=== PATIENT | male | born 1995 | race Caucasian/White ===

== ENCOUNTER 2018-09-05 21:57 | Inpatient (IN) | payer OTHER ==
[~2018-09-05] VITALS: Ht 172.7 cm; Wt 95.8 kg
[2018-09-05] MEDS ORDERED: ONDANSETRON PF 4 MG/2 ML VIAL. ONE (22:20)
[2018-09-05] MEDS ORDERED: KETOROLAC 15 MG/ML VIAL. IV ONE (22:30)
[2018-09-05] MEDS ORDERED: IV NORMAL SALINE 1000ML BAG 1,000 ML IV ONE (22:30)
[2018-09-05 22:39] LABS: BILIRUBIN,URINE NEGATIVE (NEG); CLARITY,URINE CLEAR; COLOR,URINE YELLOW; NITRITE,URINE NEGATIVE (NEG); PH,URINE 6.5; PROTEIN,URINE NEGATIVE (NEG-TRACE)
[2018-09-05 22:39] LABS: BASO # 0.1 x10^3/uL (0.0-0.2); BASO % 1 % (0-3); EOS # 0.2 x10^3/uL (0.0-0.7); EOS % 1 % (0-3); HEMOGLOBIN 15.5 g/dL (13.0-17.5); LYMPH # 2.5 x10^3/uL (1.0-4.8); LYMPH % 17 % (24-48); MEAN CORPUSCULAR HEMOGLOBIN 29 pg (25-35); MEAN CORPUSCULAR HGB CONC 34 g/dL (31-37); MEAN CORPUSCULAR VOLUME 85 fL (79-100); MONO # 0.8 x10^3/uL (0.0-1.1); MONO % 6 % (0-9); NEUT # 11.4 x10^3uL (1.8-7.7); NEUT % 76 % (31-73); PLATELET COUNT 193 x10^3/uL (140-400); RED BLOOD COUNT 5.32 x10^6/uL (4.30-5.70); RED CELL DISTRIBUTION WIDTH 12.5 % (11.5-14.5)
[2018-09-05 22:43] LABS: BACTERIA,URINE 0 /HPF (0-FEW); SQUAMOUS EPITHELIAL CELL,UR FEW /LPF; WBC,URINE 0 /HPF (0-4)
[2018-09-05 22:46] LABS: CALCIUM 9.3 mg/dL (8.5-10.1); CREATININE 0.9 mg/dL (0.7-1.3); GFR 105.5; POTASSIUM 3.4 mmol/L (3.5-5.1)
[2018-09-05 22:52] LABS: ALBUMIN 4.3 g/dL (3.4-5.0); ALBUMIN/GLOBULIN RATIO 1.2 (1.0-1.7); TOTAL BILIRUBIN 0.3 mg/dL (0.2-1.0); TOTAL PROTEIN 7.8 g/dL (6.4-8.2)
[2018-09-05] MEDS ORDERED: ONDANSETRON ODT 4 MG TAB.RAPDIS. PO ONE (23:00)
[2018-09-05] MEDS ORDERED: METOCLOPRAMIDE HCL 10 MG/2 ML VIAL. IV ONE (23:00)
[2018-09-05] MEDS ORDERED: FAMOTIDINE 20 MG/2 ML VIAL IVP ONE (23:00)
--- NOTE | 2018-09-05 23:33 | PHYS DOC ---
Past Medical History Past Medical History: Diabetes-Type I Past Surgical History: No Surgical History Alcohol Use: Occasionally Drug Use: None Adult General Chief Complaint Chief Complaint: ABDOMINAL PAIN HPI HPI Patient is a 23 year old male who presents with abdominal pain. Patient states this morning he woke up with right-sided back pain and throughout the day pain moved to the center of his stomach. He described the pain initially as a dull crampy sensation however as the day progressed his pain worsened to a severe crampy sensation. His pain currently as a 7 out of 10. His pain is worsened by laying down, jarring movements. Nothing seems to improve his pain. In addition to his abdominal pain patient also had 4 episodes of nonbilious nonbloody emesis this evening. He denies any blood in his urine, diarrhea, constipation, or blood in stools. His last bowel movement was this evening it was normal for him. Review of Systems Review of Systems Constitutional: Reports chills. Denies fever Eyes: Denies redness or blurry vision HENT: Denies nasal congestion or sore throat Respiratory: Denies cough or shortness of breath Cardiovascular: Denies chest pain or palpitations GI: Reports abdominal pain, nausea, vomiting. Denies constipation or diarrhea. : Denies dysuria or hematuria Musculoskeletal: Reports back pain. Denies joint pain Integument: Denies rash or skin lesions Neurologic: Denies headache or focal weakness Complete systems were reviewed and found to be within normal limits, except as documented in this note. Current Medications Current Medications Current Medications Medications (Trade) Dose Ordered Sig/Tori Start Time Stop Time Status Last Admin Dose Admin Famotidine (Pepcid Vial) 20 mg 1X ONCE 09/05/18 23:00 09/05/18 23:01 DC 09/05/18 23:01 20 MG Ketorolac Tromethamine (Toradol 15mg Vial) 15 mg 1X ONCE 09/05/18 22:30 09/05/18 22:53 DC 09/05/18 22:30 15 MG Metoclopramide HCl (Reglan Vial) 10 mg 1X ONCE 09/05/18 23:00 09/05/18 23:01 DC 09/05/18 22:59 10 MG Ondansetron HCl (Zofran Odt) 4 mg 1X ONCE 09/05/18 23:00 09/05/18 23:01 DC Ondansetron HCl (Zofran) 4 mg STK-MED ONCE 09/05/18 22:20 09/05/18 22:21 DC Sodium Chloride 1,000 ml @ 1,000 mls/hr 1X ONCE 09/05/18 22:30 09/05/18 23:29 DC 09/05/18 22:32 1,000 MLS/HR Allergies Allergies Allergies Coded Allergies Type Severity Reaction Last Updated Verified No Known Drug Allergies 09/05/18 No Physical Exam Physical Exam Constitutional: Well developed, well nourished, no acute distress, non-toxic appearance. HENT: Normocephalic, atraumatic Eyes:EOMI, conjunctiva normal Neck: Normal range of motion, supple Cardiovascular:Heart rate regular rhythm, no murmur Lungs & Thorax: Bilateral breath sounds clear to auscultation, no rhonchi rales or wheezes. Abdomen: Bowel sounds normal, soft, right lower quadrant and epigastric tenderness, negative mercado's sign, psoas sign, obturator sign, and heel tap, no rebound rigidity or guarding, non-peritoneal Skin: Warm, dry, no erythema Back: No tenderness, no CVA tenderness. Extremities: No tenderness, ROM intact, no edema Neurologic: Alert and oriented X 3, no focal deficits noted Psychologic: Affect normal, mood normal Current Patient Data Vital Signs Vital Signs Date Time Temp Pulse Resp B/P (MAP) Pulse Ox O2 Delivery O2 Flow Rate FiO2 09/05/18 23:34 122/69 (86) 09/05/18 22:01 98.7 70 16 100 Room Air 98.7 Lab Values Laboratory Tests Test 09/05/18 22:03 09/05/18 22:29 Urine Collection Type Unknown Urine Color Yellow Urine Clarity Clear Urine pH 6.5 Urine Specific [place] 1.025 Urine Protein Negative mg/dL (NEG-TRACE) Urine Glucose (UA) Negative mg/dL (NEG) Urine Ketones (Stick) Negative mg/dL (NEG) Urine Blood Negative (NEG) Urine Nitrite Negative (NEG) Urine Bilirubin Negative (NEG) Urine Urobilinogen Dipstick 1.0 mg/dL (0.2 mg/dL) Urine Leukocyte Esterase Negative (NEG) Urine RBC 3-5 /HPF (0-2) Urine WBC 0 /HPF (0-4) Urine Squamous Epithelial Cells Few /LPF Urine Bacteria 0 /HPF (0-FEW) Urine Mucus Slight /LPF White Blood Count 15.0 x10^3/uL (4.0-11.0) H Red Blood Count 5.32 x10^6/uL (4.30-5.70) Hemoglobin 15.5 g/dL (13.0-17.5) Hematocrit 45.0 % (39.0-53.0) Mean Corpuscular Volume 85 fL (79-100) Mean Corpuscular Hemoglobin 29 pg (25-35) Mean Corpuscular Hemoglobin Concent 34 g/dL (31-37) Red Cell Distribution Width 12.5 % (11.5-14.5) Platelet Count 193 x10^3/uL (140-400) Neutrophils (%) (Auto) 76 % (31-73) H Lymphocytes (%) (Auto) 17 % (24-48) L Monocytes (%) (Auto) 6 % (0-9) Eosinophils (%) (Auto) 1 % (0-3) Basophils (%) (Auto) 1 % (0-3) Neutrophils # (Auto) 11.4 x10^3uL (1.8-7.7) H Lymphocytes # (Auto) 2.5 x10^3/uL (1.0-4.8) Monocytes # (Auto) 0.8 x10^3/uL (0.0-1.1) Eosinophils # (Auto) 0.2 x10^3/uL (0.0-0.7) Basophils # (Auto) 0.1 x10^3/uL (0.0-0.2) Sodium Level 140 mmol/L (136-145) Potassium Level 3.4 mmol/L (3.5-5.1) L Chloride Level 100 mmol/L (98-107) Carbon Dioxide Level 27 mmol/L (21-32) Anion Gap 13 (6-14) Blood Urea Nitrogen 21 mg/dL (8-26) Creatinine 0.9 mg/dL (0.7-1.3) Estimated GFR (Cockcroft-Gault) 105.5 BUN/Creatinine Ratio 23 (6-20) H Glucose Level 147 mg/dL (70-99) H Calcium Level 9.3 mg/dL (8.5-10.1) Magnesium Level 2.2 mg/dL (1.8-2.4) Total Bilirubin 0.3 mg/dL (0.2-1.0) Aspartate Amino Transferase (AST) 19 U/L (15-37) Alanine Aminotransferase (ALT) 51 U/L (16-63) Alkaline Phosphatase 84 U/L (46-116) Total Protein 7.8 g/dL (6.4-8.2) Albumin 4.3 g/dL (3.4-5.0) Albumin/Globulin Ratio 1.2 (1.0-1.7) Lipase 95 U/L (73-393) Laboratory Tests 09/05/18 22:29 Laboratory Tests 09/05/18 22:29 EKG EKG [] Radiology/Procedures Radiology/Procedures PROCEDURE: CT ABDOMEN PELVIS WO CONTRAST CT abdomen and pelvis without contrast: Reason for examination: Abdominal pain with nausea and vomiting. Helical images were obtained through the abdomen and pelvis with no intravenous or oral contrast administered. Reconstruction was performed in sagittal and coronal planes. Exposure: One or more of the following individualized dose reduction techniques were utilized for this examination: 1. Automated exposure control 2. Adjustment of the mA and/or kV according to patient size 3. Use of iterative reconstruction technique. The lung bases are clear. The heart size is normal with no pericardial effusion. No abnormality seen at the liver, spleen, adrenal glands, pancreas or gallbladder. The abdominal aorta and inferior vena cava show no acute abnormalities. There is a small hiatal hernia. No other abnormality seen at the stomach. The small intestinal tract is not abnormally dilated and shows no wall thickening. The colon shows no diverticulosis or diverticulitis or evidence of colitis. In the right lower quadrant, there is some density within a tubular structure which appears to represent the appendix containing appendicoliths which appears to be distended at 11.5 mm with wall thickening. No periappendiceal inflammation or abscess is seen. The kidneys show no renal masses, renal calculi, hydronephrosis or obstructive uropathy. No abnormality seen at the bladder, prostate gland or seminal vesicles. There does appear to be a small amount of free fluid in the pelvis. IMPRESSION: Dilated appendix with wall thickening and appendicoliths with no periappendiceal inflammation but a small amount of free fluid in the pelvis. Small hiatal hernia. Electronically signed by: Danae Carter MD (09/05/2018 11:44 PM) [facility] DICTATED and SIGNED BY: DANAE CARTER MD Course & Med Decision Making Course & Med Decision Making 23-year-old male presented to the emergency department due to abdominal pain. Pain initially started as back pain but involved in the stomach pain. He didn't have 4 episodes of nonbloody nonbilious emesis. Labs and imaging were obtained and posted to chart. On exam patient did have right lower quadrant tenderness as well as epigastric tenderness. Non-peritoneal. Symptomatic treatment provided with interval improvement. Patient had a white count of 15. CT imaging showed a dilated appendix and appendicolith is a likely early acute appendicitis. Per Dr. Valle, general surgeon, antibiotics were initiated. Patient requiring admission for further evaluation and treatment. Discussed with Dr. Jacob who is in agreement with admission. Discussed findings and plan with patient and family, who acknowledge understanding and agreement. [] Dragon Disclaimer Dragon Disclaimer This electronic medical record was generated, in whole or in part, using a voice recognition dictation system. Departure Departure Impression: Primary Impression: Acute appendicitis Disposition: 09 ADMITTED INPATIENT Admitting Physician: Other (Rigofel) Condition: GUARDED Referrals: CHEO JOSEPH (PCP) Critical Care Time Critical care time was 30 minutes which includes time at bedside, spent in discussion of patient's care with specialists and/or family members, with interpretation of laboratory and/or radiological studies and is exclusive of procedures. Problem Qualifiers Primary Impression: Acute appendicitis Acute appendicitis type: unspecified acute appendicitis type Qualified Codes : K35.80 - Unspecified acute appendicitis TAVO SANCHEZ DO Sep 05, 2018 23:33
--- NOTE | 2018-09-05 23:47 | RAD ---
CT abdomen and pelvis without contrast: Reason for examination: Abdominal pain with nausea and vomiting. Helical images were obtained through the abdomen and pelvis with no intravenous or oral contrast administered. Reconstruction was performed in sagittal and coronal planes. Exposure: One or more of the following individualized dose reduction techniques were utilized for this examination: 1. Automated exposure control 2. Adjustment of the mA and/or kV according to patient size 3. Use of iterative reconstruction technique. The lung bases are clear. The heart size is normal with no pericardial effusion. No abnormality seen at the liver, spleen, adrenal glands, pancreas or gallbladder. The abdominal aorta and inferior vena cava show no acute abnormalities. There is a small hiatal hernia. No other abnormality seen at the stomach. The small intestinal tract is not abnormally dilated and shows no wall thickening. The colon shows no diverticulosis or diverticulitis or evidence of colitis. In the right lower quadrant, there is some density within a tubular structure which appears to represent the appendix containing appendicoliths which appears to be distended at 11.5 mm with wall thickening. No periappendiceal inflammation or abscess is seen. The kidneys show no renal masses, renal calculi, hydronephrosis or obstructive uropathy. No abnormality seen at the bladder, prostate gland or seminal vesicles. There does appear to be a small amount of free fluid in the pelvis. IMPRESSION: Dilated appendix with wall thickening and appendicoliths with no periappendiceal inflammation but a small amount of free fluid in the pelvis. Small hiatal hernia. Electronically signed by: Danae Aguilar MD (09/05/2018 11:44 PM) [facility]
[2018-09-06] VITALS (13 sets, daily range): BP systolic 91–124; BP diastolic 50–77
[2018-09-06] MEDS ORDERED: DEXTROSE 50% 25 GM / 50ML DISP.SYRIN. IV PRN
[2018-09-06] MEDS ORDERED: IV NORMAL SALINE 1000ML BAG 1,000 ML IV ONE (00:15)
[2018-09-06] MEDS ORDERED: PIPERACILLIN/TAZOBACTAM 3.375 GM in IV NORMAL SALINE 50ML 50 ML IV ONE (00:15)
[2018-09-06] MEDS ORDERED: PARO20TA99 PO (00:43)
[2018-09-06] MEDS ORDERED: INSU100V13 SQ (00:43)
[2018-09-06] MEDS ORDERED: INSU100I11 SQ (00:43)
[2018-09-06] MEDS: fentaNYL PF VIAL 100 MCG/2 ML VIAL IV PRN ×3 (01:18→09:16)
--- NOTE | 2018-09-06 02:00 | NUR ---
pt arrived to unit at 0025 via wheelchair in stable condition. pt is alert and oriented and on RA. pt fiance is at bedside and call light is within reach. pt is rating his pain 4/10 in his abdomen. pt ambulated to bathroom upon arrival. vital signs are stable. will continue to monitor. Addendum: 09/06/18 at 0201 by GIOVANNY KIM RN RN received report from JACOB Phillips in ER.
--- NOTE | 2018-09-06 08:18 | PDOC2 ---
RADHIKAPILLO Gillian [employer]IDENTIAL LIFE DIRECTOR 09/06/18 0818: CONSULT Date of Consult Date of Consult DATE: 09/06/18 TIME: 08:15 Reason for Consult Reason for Consult: appendicitis Referring Physician Referring Physician: ER Identification/Chief Complaint Chief Complaint abdominal pain Source Source: Chart review, Patient History of Present Illness Reason for Visit: Acute onset right sided abdominal pain yesterday. Associated nausea and emesis. Pain seems aggravated with movement. No constipation or diarrhea Past Medical History Psych: Anxiety, Depression Endocrine: Diabetes Past Surgical History Past Surgical History: No pertinent history Family History Family History: Other (noncontributory to current illness ) Social History No ALCOHOL: other (3x/wk) Drugs: None Lives: with Family Current Problem List Problem List Problems Medical Problems: (1) Acute appendicitis Status: Acute Current Medications Current Medications Current Medications Ondansetron HCl (Zofran Odt) 4 mg 1X ONCE PO ; Start 09/05/18 at 23:00; Stop at 23:01; Status DC Ondansetron HCl (Zofran) 4 mg STK-MED ONCE .ROUTE ; Start 09/05/18 at 22:20; Stop 09/05/18 at 22:21; Status DC Sodium Chloride 1,000 ml @ 1,000 mls/hr 1X ONCE IV Last administered on at 22:32; Start 09/05/18 at 22:30; Stop 09/05/18 at 23:29; Status DC Ketorolac Tromethamine (Toradol 15mg Vial) 15 mg 1X ONCE IV Last administered on 09/05/18at 22:30; Start 09/05/18 at 22:30; Stop 09/05/18 at 22:53; Status DC Famotidine (Pepcid Vial) 20 mg 1X ONCE IVP Last administered on 09/05/18at 23: 01; Start 09/05/18 at 23:00; Stop 09/05/18 at 23:01; Status DC Metoclopramide HCl (Reglan Vial) 10 mg 1X ONCE IV Last administered on at 22:59; Start 09/05/18 at 23:00; Stop 09/05/18 at 23:01; Status DC Ondansetron HCl (Zofran) 4 mg PRN Q8HRS PRN IV NAUSEA/VOMITING; Start 09/06/18 at 00:00; Stop 09/06/18 at 23:59 Fentanyl Citrate (Fentanyl 2ml Vial) 50 mcg PRN Q2HR PRN IV PAIN Last administered on 09/06/18at 07:29; Start 09/06/18 at 00:00 Insulin Human Lispro (HumaLOG) 0-5 UNITS TIDWMEALS SQ ; Start 09/06/18 at 08:00 Dextrose (Dextrose 50%-Water Syringe) 12.5 gm PRN Q15MIN PRN IV SEE COMMENTS; Start 09/06/18 at 00:00 Piperacillin Sod/ Tazobactam Sod 3.375 gm/Sodium Chloride 50 ml @ 100 mls/hr 1X ONCE IV Last administered on 09/06/18at 00:32; Start 09/06/18 at 00:15; Stop 09/06/18 at 00:44; Status DC Sodium Chloride 1,000 ml @ 125 mls/hr 1X ONCE IV Last administered on at 00:33; Start 09/06/18 at 00:15; Stop 09/06/18 at 08:14; Status DC Active Scripts Active Reported Levemir (Insulin Detemir) 100 Unit/1 Ml Vial 30 Unit SQ HS Humalog (Insulin Lispro) 100 Unit/1 Ml Insuln.pen 0 SQ TIDWMEALS Paxil (Paroxetine Hcl) 20 Mg Tablet 1 Tab PO DAILY Allergies Allergies: Coded Allergies: No Known Drug Allergies (Unverified , 09/05/18) ROS General: YES: Chills; No: Other (fevers) PSYCHOLOGICAL ROS: No: Anxiety, Depression Eyes: No Blurry vision HEENT: No: Heacaches, Sore Throat Hematological and Lymphatic: No: Bleeding Problems, Blood Clots Respiratory: No: Cough, Shortness of breath Cardiovascular: No Chest Pain, No Palpitations Gastrointestinal: Yes Other (see hpi) Genitourinary: No Dysuria, No Hematuria Musculoskeletal: No Joint Pain, No Muscle Pain Neurological: No Impaired Coord/balance, No Numbness/Tingling Skin: No Pruritus, No Rash Physical Exam General: Alert, Oriented X3, Cooperative, No acute distress HEENT: PERRLA, Mucous membr. moist/pink Lungs: Clear to auscultation, Normal air movement Heart: Regular rate, Normal S1, Normal S2, No murmurs Abdomen: Soft, Other (TTP lower abdomen ) Extremities: No clubbing, No cyanosis Skin: No rashes, No breakdown Neuro: Normal gait, Normal speech Psych/Mental Status: Mental status NL, Mood NL MUSCULOSKELETAL: No deformity, No swelling Vitals VITALS Vital Signs Date Time Temp Pulse Resp B/P (MAP) Pulse Ox O2 Delivery O2 Flow Rate FiO2 09/06/18 07:29 Room Air 09/06/18 03:10 97.8 93 18 91/68 (76) 96 97.8 Labs Labs Laboratory Tests Test 09/05/18 22:03 09/05/18 22:29 Urine Collection Type Unknown Urine Color Yellow Urine Clarity Clear Urine pH 6.5 Urine Specific [place] 1.025 Urine Protein Negative mg/dL (NEG-TRACE) Urine Glucose (UA) Negative mg/dL (NEG) Urine Ketones (Stick) Negative mg/dL (NEG) Urine Blood Negative (NEG) Urine Nitrite Negative (NEG) Urine Bilirubin Negative (NEG) Urine Urobilinogen Dipstick 1.0 mg/dL (0.2 mg/dL) Urine Leukocyte Esterase Negative (NEG) Urine RBC 3-5 /HPF (0-2) Urine WBC 0 /HPF (0-4) Urine Squamous Epithelial Cells Few /LPF Urine Bacteria 0 /HPF (0-FEW) Urine Mucus Slight /LPF White Blood Count 15.0 x10^3/uL (4.0-11.0) Red Blood Count 5.32 x10^6/uL (4.30-5.70) Hemoglobin 15.5 g/dL (13.0-17.5) Hematocrit 45.0 % (39.0-53.0) Mean Corpuscular Volume 85 fL (79-100) Mean Corpuscular Hemoglobin 29 pg (25-35) Mean Corpuscular Hemoglobin Concent 34 g/dL (31-37) Red Cell Distribution Width 12.5 % (11.5-14.5) Platelet Count 193 x10^3/uL (140-400) Neutrophils (%) (Auto) 76 % (31-73) Lymphocytes (%) (Auto) 17 % (24-48) Monocytes (%) (Auto) 6 % (0-9) Eosinophils (%) (Auto) 1 % (0-3) Basophils (%) (Auto) 1 % (0-3) Neutrophils # (Auto) 11.4 x10^3uL (1.8-7.7) Lymphocytes # (Auto) 2.5 x10^3/uL (1.0-4.8) Monocytes # (Auto) 0.8 x10^3/uL (0.0-1.1) Eosinophils # (Auto) 0.2 x10^3/uL (0.0-0.7) Basophils # (Auto) 0.1 x10^3/uL (0.0-0.2) Sodium Level 140 mmol/L (136-145) Potassium Level 3.4 mmol/L (3.5-5.1) Chloride Level 100 mmol/L (98-107) Carbon Dioxide Level 27 mmol/L (21-32) Anion Gap 13 (6-14) Blood Urea Nitrogen 21 mg/dL (8-26) Creatinine 0.9 mg/dL (0.7-1.3) Estimated GFR (Cockcroft-Gault) 105.5 BUN/Creatinine Ratio 23 (6-20) Glucose Level 147 mg/dL (70-99) Calcium Level 9.3 mg/dL (8.5-10.1) Magnesium Level 2.2 mg/dL (1.8-2.4) Total Bilirubin 0.3 mg/dL (0.2-1.0) Aspartate Amino Transf (AST/SGOT) 19 U/L (15-37) Alanine Aminotransferase (ALT/SGPT) 51 U/L (16-63) Alkaline Phosphatase 84 U/L (46-116) Total Protein 7.8 g/dL (6.4-8.2) Albumin 4.3 g/dL (3.4-5.0) Albumin/Globulin Ratio 1.2 (1.0-1.7) Lipase 95 U/L (73-393) Laboratory Tests Test 09/05/18 22:03 09/05/18 22:29 Urine Collection Type Unknown Urine Color Yellow Urine Clarity Clear Urine pH 6.5 Urine Specific [place] 1.025 Urine Protein Negative mg/dL (NEG-TRACE) Urine Glucose (UA) Negative mg/dL (NEG) Urine Ketones (Stick) Negative mg/dL (NEG) Urine Blood Negative (NEG) Urine Nitrite Negative (NEG) Urine Bilirubin Negative (NEG) Urine Urobilinogen Dipstick 1.0 mg/dL (0.2 mg/dL) Urine Leukocyte Esterase Negative (NEG) Urine RBC 3-5 /HPF (0-2) Urine WBC 0 /HPF (0-4) Urine Squamous Epithelial Cells Few /LPF Urine Bacteria 0 /HPF (0-FEW) Urine Mucus Slight /LPF White Blood Count 15.0 x10^3/uL (4.0-11.0) Red Blood Count 5.32 x10^6/uL (4.30-5.70) Hemoglobin 15.5 g/dL (13.0-17.5) Hematocrit 45.0 % (39.0-53.0) Mean Corpuscular Volume 85 fL (79-100) Mean Corpuscular Hemoglobin 29 pg (25-35) Mean Corpuscular Hemoglobin Concent 34 g/dL (31-37) Red Cell Distribution Width 12.5 % (11.5-14.5) Platelet Count 193 x10^3/uL (140-400) Neutrophils (%) (Auto) 76 % (31-73) Lymphocytes (%) (Auto) 17 % (24-48) Monocytes (%) (Auto) 6 % (0-9) Eosinophils (%) (Auto) 1 % (0-3) Basophils (%) (Auto) 1 % (0-3) Neutrophils # (Auto) 11.4 x10^3uL (1.8-7.7) Lymphocytes # (Auto) 2.5 x10^3/uL (1.0-4.8) Monocytes # (Auto) 0.8 x10^3/uL (0.0-1.1) Eosinophils # (Auto) 0.2 x10^3/uL (0.0-0.7) Basophils # (Auto) 0.1 x10^3/uL (0.0-0.2) Sodium Level 140 mmol/L (136-145) Potassium Level 3.4 mmol/L (3.5-5.1) Chloride Level 100 mmol/L (98-107) Carbon Dioxide Level 27 mmol/L (21-32) Anion Gap 13 (6-14) Blood Urea Nitrogen 21 mg/dL (8-26) Creatinine 0.9 mg/dL (0.7-1.3) Estimated GFR (Cockcroft-Gault) 105.5 BUN/Creatinine Ratio 23 (6-20) Glucose Level 147 mg/dL (70-99) Calcium Level 9.3 mg/dL (8.5-10.1) Magnesium Level 2.2 mg/dL (1.8-2.4) Total Bilirubin 0.3 mg/dL (0.2-1.0) Aspartate Amino Transf (AST/SGOT) 19 U/L (15-37) Alanine Aminotransferase (ALT/SGPT) 51 U/L (16-63) Alkaline Phosphatase 84 U/L (46-116) Total Protein 7.8 g/dL (6.4-8.2) Albumin 4.3 g/dL (3.4-5.0) Albumin/Globulin Ratio 1.2 (1.0-1.7) Lipase 95 U/L (73-393) Assessment/Plan Assessment/Plan acute appendicitis plan lap appy today DREW VIVAR MD 09/06/18 0857: CONSULT Assessment/Plan Assessment/Plan Patient seen and examined by me resting comfortably in bed describes about 24- hour history of epigastric to right lower quadrant abdominal pain nausea no vomiting abdomen is soft nondistended tender to palpation right lower quadrant CT scan shows signs consistent with acute appendicitis no evidence of abscess. Plan for laparoscopic appendectomy today agree with Guera assessment and plan PILLO GARRIDO [employer]IDENTIAL LIFE DIRECTOR Sep 06, 2018 08:18 DREW VIVAR MD Sep 06, 2018 08:57
[2018-09-06] MEDS ORDERED: IV RINGERS,LACTATED 1000ML 1,000 ML IV SCH (08:42)
[2018-09-06] MEDS ORDERED: fentaNYL PF VIAL 100 MCG/2 ML VIAL IV PRN ×2 (08:45)
[2018-09-06] MEDS ORDERED: ONDANSETRON PF 4 MG/2 ML VIAL. IV PRN ×3 (08:45→14:15)
[2018-09-06] MEDS ORDERED: HYDROmorphone 2 MG/ML VIAL IV PRN (08:45)
[2018-09-06] MEDS ORDERED: LIDOCAINE 1% PF 2 ML VIAL. ID PRN (08:45)
[2018-09-06] MEDS ORDERED: MORPHINE SULFATE 2 MG/ML VIAL. IV PRN ×2 (08:45→14:15)
[2018-09-06] MEDS ORDERED: PROCHLORPERAZINE 10 MG/2 ML VIAL. IV PRN (08:45)
[2018-09-06] MEDS: INSULIN LISPRO 300 UNITS/3 ML INSULN.PEN. SQ SCH ×3 (09:11→17:00)
[2018-09-06] MEDS: MORPHINE SULFATE 2 MG/ML VIAL. IV PRN ×2 (11:31→17:26)
[2018-09-06] MEDS ORDERED: BUPIVAC MPF-EPI 0.5%-1:200000 30 ML VIAL. ONE (11:54)
--- NOTE | 2018-09-06 12:39 | NUR ---
Pt is off unit with transportation headed to surgery.
--- NOTE | 2018-09-06 12:44 | SSS ---
ADMIT DATE: 09/06/2018 CHIEF COMPLAINT: Abdominal pain. HISTORY OF PRESENT ILLNESS: The patient is a pleasant 23-year-old male who presented to the ER with abdominal pain. He is basically healthy, other than he has some diabetes and anxiety. They did a CAT scan that showed he has appendicitis. He rates his pain at 7/10. He has associated nausea. It has been occurring for several days. He tried taking some home meds, but that did not work. Pain is worse with food, better with no food. I discussed the case with the ER physician. We have admitted the patient and we are going to consult General Surgery. The patient is going to surgery this afternoon and probably will go home after surgery. PAST MEDICAL HISTORY: Diabetes and anxiety. ALLERGIES: None. FAMILY HISTORY: Coronary artery disease. SOCIAL HISTORY: He does not drink, smoke or take drugs. He works at [employer]. MEDICATIONS: Reviewed. Please refer to the MRAD. He is on Paxil, Levemir and Humalog. REVIEW OF SYSTEMS: GENERAL: No history of weight change, weakness or fevers. SKIN: No bruising, hair changes or rashes. EYES: No blurred, double or loss of vision. NOSE AND THROAT: No history of nosebleeds, hoarseness or sore throat. HEART: No history of palpitations, chest pain or shortness of breath on exertion. LUNGS: Denies cough, hemoptysis, wheezing or shortness of breath. GASTROINTESTINAL: Denies changes in appetite, nausea, vomiting, diarrhea or constipation. He complains of abdominal pain. GENITOURINARY: No history of frequency, urgency, hesitancy or nocturia. NEUROLOGIC: Denies history of numbness, tingling, tremor or weakness. PSYCHIATRIC: No history of panic, anxiety or depression. ENDOCRINE: No history of heat or cold intolerance, polyuria or polydipsia. EXTREMITIES: Denies muscle weakness, joint pain, pain on walking or stiffness. PHYSICAL EXAMINATION: VITAL SIGNS: Temperature afebrile, pulse 92, respirations 18 and blood pressure 116/50. GENERAL: He is alert, cooperative. HEART: Normal S1, S2. LUNGS: Clear. ABDOMEN: Soft and tender in the right lower quadrant. EXTREMITIES: No edema. SKIN: No rashes. ENDOCRINE: No thyromegaly. LYMPHATICS: No cervical nodes. HEMATOPOIETIC: No bruising. PSYCHIATRIC: He is stable. LABORATORY DATA: White count is 15. Electrolytes are normal, other than potassium of 3.4 and glucose of 147. ASSESSMENT AND PLAN: Appendicitis. The patient has been admitted. We have given IV fluids, p.r.n. pain meds. We have consulted General Surgery. He is going to go to surgery at 01:00. After surgery, if he is stable, he would like to go home. I did put orders in case he can get out of here. Please see the order sheet. DISPOSITION: Home. ACTIVITY: As tolerated. DIET: Low sodium. MEDICATIONS: Please see the MRAD. TOTAL TIME: 32 minutes. CHEPE BARNES DO DR: [email or web address]/burton JOB#: [id number] / [id number]
[2018-09-06] MEDS ORDERED: FAMOTIDINE 20 MG/2 ML VIAL ONE (12:51)
[2018-09-06] MEDS ORDERED: ONDANSETRON PF 4 MG/2 ML VIAL. ONE (12:51)
[2018-09-06] MEDS ORDERED: PROPOFOL 20 ML IV ONE (12:51)
[2018-09-06] MEDS ORDERED: DEXAMETHASONE SOD PHOS 20 MG/5 ML VIAL. ONE (12:51)
[2018-09-06] MEDS ORDERED: LIDOCAINE 2% PF 5 ML VIAL. ONE (12:51)
[2018-09-06] MEDS ORDERED: fentaNYL PF VIAL 100 MCG/2 ML VIAL ONE ×2 (12:52→14:27)
[2018-09-06] MEDS ORDERED: MIDAZOLAM HCL/PF 2 MG/2 ML VIAL. ONE (12:52)
[2018-09-06] MEDS ORDERED: ROCURONIUM 50 MG/5 ML VIAL. ONE (12:52)
[2018-09-06] MEDS ORDERED: 0.9 % SODIUM CHLORIDE 20 ML VIAL. IJ ONE (13:29)
[2018-09-06] MEDS ORDERED: ceFAZolin SODIUM 1 GM VIAL ONE ×2 (13:29)
[2018-09-06] MEDS ORDERED: NEOSTIGMINE METHYLSULFATE 5 MG/5 ML SYRINGE. ONE (13:54)
[2018-09-06] MEDS ORDERED: GLYCOPYRROLATE 1 MG/5 ML VIAL. ONE (13:54)
[2018-09-06] MEDS ORDERED: DESFLURANE 31 TO 60 MINUTES IH ONE (14:00)
[2018-09-06] MEDS: IV DEXTROSE 5%-LACT RINGERS 1,000 ML IV SCH (14:07)
--- NOTE | 2018-09-06 14:07 | PDOC4 ---
Operative Note Operative Note Date: 09/06/2018 Preoperative diagnosis: Acute appendicitis Postoperative diagnosis: Same Procedure: Laparoscopic appendectomy Surgeon: Leonard Specimen: Appendix Dictation: Patient is a 23-year-old male was noted to the hospital with right lower quadrant abdominal pain and a CT scan showing signs consistent with acute appendicitis. Procedure lap scopic appendectomy was explained to the patient in detail risk benefits were also discussed including bleeding infection injury to intra-abdominal contents possibly necessitating further or open operations alternatives to this procedure also discussed with the patient who seemed to understand and gave both verbal and written consent to have the procedure performed. Patient was taken to the operative [place] supine position general anesthesia was initiated once patient was sleep and intubated his abdomen was prepped and draped in the usual sterile fashion using ChloraPrep. The umbilicus was injected with quarter percent Marcaine with epinephrine incision was pete blade scalpel and a Veress needle was placed within the abdomen creating pneumoperitoneum once this was complete 12 mm port was placed and a 5 mm camera was placed within the abdomen to inspected the abdomen no other abdomen maladies were noted there was a little bit of free fluid in the right lower quadrant a 5 mm port was placed low in the midline under direct visualization one in the right mid abdomen camera was moved to the pelvic port the appendix was grasped and tracked towards anterior abdominal wall the appendix was quite enlarged a window was propagated in the mesial appendix at the base the appendix with [place] dissector and Endo RICA stapler was then used to staple and transect the base the appendix a second load was used to staple and transect the mesoappendix was noted there was a single arterial bleeder along the staple line and this was clipped with a 10 mm clip. The appendix was then placed in Endo Catch bag remove them umbilicus the right lower quadrant and pelvis were irrigated and suctioned dry hemostasis was deemed to be appropriate and the pneumoperitoneum was reduced all ports removed fascial defect at the umbilicus closed with a [id number] 0 Vicryl suture and the skin was approximate all port sites with for septic and a Monocryl Mastisol Steri-Strips and island dressings were applied. Patient was awakened and asked bated operating room taken to recovery in stable condition all sponge instrument needle counts listed as correct estimated blood loss 10 mL DREW VIVAR MD Sep 06, 2018 14:07
[2018-09-06] MEDS ORDERED: oxyCODONE/APAP 5/325 1 TAB TABLET PO PRN (14:15)
[2018-09-06] MEDS ORDERED: 0.9 % SODIUM CHLORIDE 10 ML DISP.SYRIN. IV PRN (14:15)
[2018-09-06] MEDS ORDERED: PROCHLORPERAZINE 10 MG/2 ML VIAL. ONE (14:27)
[2018-09-06] MEDS: KETOROLAC 15 MG/ML VIAL. IV SCH (18:50)
[2018-09-06] MEDS: cefOXitin SODIUM IV Push 1 GM VIAL. IVP SCH (19:58)
--- NOTE | 2018-09-06 20:16 | NUR ---
Pt came back from surgery at approximately 1600. VSS, 2L NC, and A&O X4. Client was provided with water, ice chips, and jello. Client had discomfort around lap sites. Call light with in reach.
--- NOTE | 2018-09-06 20:42 | NUR ---
pt's finger stick blood sugar 313, pt manage his own sliding scale insulin.
[2018-09-07] MEDS: KETOROLAC 15 MG/ML VIAL. IV SCH ×5 (00:26→23:42)
[2018-09-07] MEDS: oxyCODONE/APAP 5/325 1 TAB TABLET PO PRN ×4 (02:12→20:42)
[2018-09-07 02:46] VITALS: BP 102/49
[2018-09-07] MEDS: IV DEXTROSE 5%-LACT RINGERS 1,000 ML IV SCH (03:27)
[2018-09-07] MEDS: cefOXitin SODIUM IV Push 1 GM VIAL. IVP SCH ×2 (05:05→12:58)
[2018-09-07 06:09] LABS: CALCIUM 8.9 mg/dL (8.5-10.1); CREATININE 1.8 mg/dL (0.7-1.3); GFR 47.4; POTASSIUM 3.7 mmol/L (3.5-5.1)
[2018-09-07 06:14] LABS: BASO % 1 % (0-3); EOS % 0 % (0-3); HEMATOCRIT 40.3 % (39.0-53.0); HEMOGLOBIN 13.9 g/dL (13.0-17.5); LYMPH # 1.4 x10^3/uL (1.0-4.8); LYMPH % 19 % (24-48); MEAN CORPUSCULAR HEMOGLOBIN 30 pg (25-35); MEAN CORPUSCULAR HGB CONC 35 g/dL (31-37); MEAN CORPUSCULAR VOLUME 87 fL (79-100); MONO # 0.5 x10^3/uL (0.0-1.1); MONO % 6 % (0-9); NEUT # 5.5 x10^3uL (1.8-7.7); NEUT % 74 % (31-73); PLATELET COUNT 154 x10^3/uL (140-400); RED BLOOD COUNT 4.64 x10^6/uL (4.30-5.70); RED CELL DISTRIBUTION WIDTH 12.6 % (11.5-14.5); WHITE BLOOD COUNT 7.5 x10^3/uL (4.0-11.0)
[2018-09-07 07:00] VITALS: BP 109/76
[2018-09-07] MEDS: CALCIUM CARBONATE 500 MG TAB.CHEW PO PRN ×2 (07:16→23:41)
[2018-09-07] MEDS: INSULIN LISPRO 300 UNITS/3 ML INSULN.PEN. SQ SCH ×3 (07:21→17:00)
--- NOTE | 2018-09-07 07:21 | NUR ---
Pt's took BS with home machine at 250. Pt. took home sliding scale of 7 Units.
[2018-09-07] MEDS: MORPHINE SULFATE 2 MG/ML VIAL. IV PRN (08:57)
[2018-09-07] MEDS: fentaNYL PF VIAL 100 MCG/2 ML VIAL IV PRN ×2 (09:57→16:11)
[2018-09-07 11:00] VITALS: BP 117/62
[2018-09-07] MEDS: IV NORMAL SALINE 1000ML BAG 1,000 ML IV SCH (11:49)
--- NOTE | 2018-09-07 11:52 | PDOC ---
PROGRESS NOTES Subjective Subjective feels well Objective Objective Vital Signs Date Time Temp Pulse Resp B/P (MAP) Pulse Ox O2 Delivery O2 Flow Rate FiO2 09/07/18 10:37 Room Air 09/07/18 07:00 98.0 87 18 109/76 (87) 98 98.0 09/06/18 15:25 2.0 Intake and Output 09/07/18 06:59 Intake Total 1250 ml Output Total 10 ml Balance 1240 ml Intake IV Total 1250 ml Output Estimated Blood Loss 10 ml # Voids 9 Physical Exam Abdomen: Soft, No tenderness Assessment Assessment Problems Medical Problems: (1) Acute appendicitis Status: Acute Plan Plan of Care OK to discharge from our standpoint when medically stable; FU with Dr Valle in 1-2 weeks in office Comment Review of Relevant I have reviewed the following items merissa (where applicable) has been applied. Labs Laboratory Tests Test 09/05/18 22:03 09/05/18 22:29 09/06/18 09:09 09/06/18 11:21 Urine Collection Type Unknown Urine Color Yellow Urine Clarity Clear Urine pH 6.5 Urine Specific [place] 1.025 Urine Protein Negative mg/dL (NEG-TRACE) Urine Glucose (UA) Negative mg/dL (NEG) Urine Ketones (Stick) Negative mg/dL (NEG) Urine Blood Negative (NEG) Urine Nitrite Negative (NEG) Urine Bilirubin Negative (NEG) Urine Urobilinogen Dipstick 1.0 mg/dL (0.2 mg/dL) Urine Leukocyte Esterase Negative (NEG) Urine RBC 3-5 /HPF (0-2) Urine WBC 0 /HPF (0-4) Urine Squamous Epithelial Cells Few /LPF Urine Bacteria 0 /HPF (0-FEW) Urine Mucus Slight /LPF White Blood Count 15.0 x10^3/uL (4.0-11.0) Red Blood Count 5.32 x10^6/uL (4.30-5.70) Hemoglobin 15.5 g/dL (13.0-17.5) Hematocrit 45.0 % (39.0-53.0) Mean Corpuscular Volume 85 fL (79-100) Mean Corpuscular Hemoglobin 29 pg (25-35) Mean Corpuscular Hemoglobin Concent 34 g/dL (31-37) Red Cell Distribution Width 12.5 % (11.5-14.5) Platelet Count 193 x10^3/uL (140-400) Neutrophils (%) (Auto) 76 % (31-73) Lymphocytes (%) (Auto) 17 % (24-48) Monocytes (%) (Auto) 6 % (0-9) Eosinophils (%) (Auto) 1 % (0-3) Basophils (%) (Auto) 1 % (0-3) Neutrophils # (Auto) 11.4 x10^3uL (1.8-7.7) Lymphocytes # (Auto) 2.5 x10^3/uL (1.0-4.8) Monocytes # (Auto) 0.8 x10^3/uL (0.0-1.1) Eosinophils # (Auto) 0.2 x10^3/uL (0.0-0.7) Basophils # (Auto) 0.1 x10^3/uL (0.0-0.2) Sodium Level 140 mmol/L (136-145) Potassium Level 3.4 mmol/L (3.5-5.1) Chloride Level 100 mmol/L (98-107) Carbon Dioxide Level 27 mmol/L (21-32) Anion Gap 13 (6-14) Blood Urea Nitrogen 21 mg/dL (8-26) Creatinine 0.9 mg/dL (0.7-1.3) Estimated GFR (Cockcroft-Gault) 105.5 BUN/Creatinine Ratio 23 (6-20) Glucose Level 147 mg/dL (70-99) Calcium Level 9.3 mg/dL (8.5-10.1) Magnesium Level 2.2 mg/dL (1.8-2.4) Total Bilirubin 0.3 mg/dL (0.2-1.0) Aspartate Amino Transf (AST/SGOT) 19 U/L (15-37) Alanine Aminotransferase (ALT/SGPT) 51 U/L (16-63) Alkaline Phosphatase 84 U/L (46-116) Total Protein 7.8 g/dL (6.4-8.2) Albumin 4.3 g/dL (3.4-5.0) Albumin/Globulin Ratio 1.2 (1.0-1.7) Lipase 95 U/L (73-393) Glucose (Fingerstick) 185 mg/dL (70-99) 210 mg/dL (70-99) Test 09/06/18 15:08 09/06/18 20:34 09/07/18 05:10 09/07/18 07:26 Glucose (Fingerstick) 166 mg/dL (70-99) 316 mg/dL (70-99) 216 mg/dL (70-99) White Blood Count 7.5 x10^3/uL (4.0-11.0) Red Blood Count 4.64 x10^6/uL (4.30-5.70) Hemoglobin 13.9 g/dL (13.0-17.5) Hematocrit 40.3 % (39.0-53.0) Mean Corpuscular Volume 87 fL (79-100) Mean Corpuscular Hemoglobin 30 pg (25-35) Mean Corpuscular Hemoglobin Concent 35 g/dL (31-37) Red Cell Distribution Width 12.6 % (11.5-14.5) Platelet Count 154 x10^3/uL (140-400) Neutrophils (%) (Auto) 74 % (31-73) Lymphocytes (%) (Auto) 19 % (24-48) Monocytes (%) (Auto) 6 % (0-9) Eosinophils (%) (Auto) 0 % (0-3) Basophils (%) (Auto) 1 % (0-3) Neutrophils # (Auto) 5.5 x10^3uL (1.8-7.7) Lymphocytes # (Auto) 1.4 x10^3/uL (1.0-4.8) Monocytes # (Auto) 0.5 x10^3/uL (0.0-1.1) Eosinophils # (Auto) 0.0 x10^3/uL (0.0-0.7) Basophils # (Auto) 0.0 x10^3/uL (0.0-0.2) Sodium Level 139 mmol/L (136-145) Potassium Level 3.7 mmol/L (3.5-5.1) Chloride Level 101 mmol/L (98-107) Carbon Dioxide Level 28 mmol/L (21-32) Anion Gap 10 (6-14) Blood Urea Nitrogen 16 mg/dL (8-26) Creatinine 1.8 mg/dL (0.7-1.3) Estimated GFR (Cockcroft-Gault) 47.4 Glucose Level 234 mg/dL (70-99) Calcium Level 8.9 mg/dL (8.5-10.1) Test 09/07/18 11:34 Glucose (Fingerstick) 149 mg/dL (70-99) Laboratory Tests Test 09/06/18 15:08 09/06/18 20:34 09/07/18 05:10 09/07/18 07:26 Glucose (Fingerstick) 166 mg/dL (70-99) 316 mg/dL (70-99) 216 mg/dL (70-99) White Blood Count 7.5 x10^3/uL (4.0-11.0) Red Blood Count 4.64 x10^6/uL (4.30-5.70) Hemoglobin 13.9 g/dL (13.0-17.5) Hematocrit 40.3 % (39.0-53.0) Mean Corpuscular Volume 87 fL (79-100) Mean Corpuscular Hemoglobin 30 pg (25-35) Mean Corpuscular Hemoglobin Concent 35 g/dL (31-37) Red Cell Distribution Width 12.6 % (11.5-14.5) Platelet Count 154 x10^3/uL (140-400) Neutrophils (%) (Auto) 74 % (31-73) Lymphocytes (%) (Auto) 19 % (24-48) Monocytes (%) (Auto) 6 % (0-9) Eosinophils (%) (Auto) 0 % (0-3) Basophils (%) (Auto) 1 % (0-3) Neutrophils # (Auto) 5.5 x10^3uL (1.8-7.7) Lymphocytes # (Auto) 1.4 x10^3/uL (1.0-4.8) Monocytes # (Auto) 0.5 x10^3/uL (0.0-1.1) Eosinophils # (Auto) 0.0 x10^3/uL (0.0-0.7) Basophils # (Auto) 0.0 x10^3/uL (0.0-0.2) Sodium Level 139 mmol/L (136-145) Potassium Level 3.7 mmol/L (3.5-5.1) Chloride Level 101 mmol/L (98-107) Carbon Dioxide Level 28 mmol/L (21-32) Anion Gap 10 (6-14) Blood Urea Nitrogen 16 mg/dL (8-26) Creatinine 1.8 mg/dL (0.7-1.3) Estimated GFR (Cockcroft-Gault) 47.4 Glucose Level 234 mg/dL (70-99) Calcium Level 8.9 mg/dL (8.5-10.1) Test 09/07/18 11:34 Glucose (Fingerstick) 149 mg/dL (70-99) Medications Current Medications Ondansetron HCl (Zofran Odt) 4 mg 1X ONCE PO ; Start 09/05/18 at 23:00; Stop at 23:01; Status DC Ondansetron HCl (Zofran) 4 mg STK-MED ONCE .ROUTE ; Start 09/05/18 at 22:20; Stop 09/05/18 at 22:21; Status DC Sodium Chloride 1,000 ml @ 1,000 mls/hr 1X ONCE IV Last administered on at 22:32; Start 09/05/18 at 22:30; Stop 09/05/18 at 23:29; Status DC Ketorolac Tromethamine (Toradol 15mg Vial) 15 mg 1X ONCE IV Last administered on 09/05/18at 22:30; Start 09/05/18 at 22:30; Stop 09/05/18 at 22:53; Status DC Famotidine (Pepcid Vial) 20 mg 1X ONCE IVP Last administered on 09/05/18at 23: 01; Start 09/05/18 at 23:00; Stop 09/05/18 at 23:01; Status DC Metoclopramide HCl (Reglan Vial) 10 mg 1X ONCE IV Last administered on at 22:59; Start 09/05/18 at 23:00; Stop 09/05/18 at 23:01; Status DC Ondansetron HCl (Zofran) 4 mg PRN Q8HRS PRN IV NAUSEA/VOMITING; Start 09/06/18 at 00:00; Stop 09/06/18 at 23:59; Status DC Fentanyl Citrate (Fentanyl 2ml Vial) 50 mcg PRN Q2HR PRN IV PAIN Last administered on 09/07/18at 09:57; Start 09/06/18 at 00:00 Insulin Human Lispro (HumaLOG) 0-5 UNITS TIDWMEALS SQ ; Start 09/06/18 at 08:00 Dextrose (Dextrose 50%-Water Syringe) 12.5 gm PRN Q15MIN PRN IV SEE COMMENTS; Start 09/06/18 at 00:00 Piperacillin Sod/ Tazobactam Sod 3.375 gm/Sodium Chloride 50 ml @ 100 mls/hr 1X ONCE IV Last administered on 09/06/18at 00:32; Start 09/06/18 at 00:15; Stop 09/06/18 at 00:44; Status DC Sodium Chloride 1,000 ml @ 125 mls/hr 1X ONCE IV Last administered on at 00:33; Start 09/06/18 at 00:15; Stop 09/06/18 at 08:14; Status DC Ondansetron HCl (Zofran) 4 mg PRN Q6HRS PRN IV NAUSEA/VOMITING; Start 09/06/18 at 08:45; Stop 09/07/18 at 08:44; Status DC Fentanyl Citrate (Fentanyl 2ml Vial) 25 mcg PRN Q5MIN PRN IV MILD PAIN; Start 09/06/18 at 08:45; Stop 09/07/18 at 08:44; Status DC Fentanyl Citrate (Fentanyl 2ml Vial) 50 mcg PRN Q5MIN PRN IV MODERATE TO SEVERE PAIN Last administered on 09/06/18at 15:25; Start 09/06/18 at 08:45; Stop 09/07/18 at 08:44; Status DC Morphine Sulfate (Morphine Sulfate) 1 mg PRN Q10MIN PRN IV SEVERE PAIN; Start 09/06/18 at 08:45; Stop 09/07/18 at 08:44; Status DC Ringer's Solution 1,000 ml @ 30 mls/hr Q24H IV ; Start 09/06/18 at 08:42; Stop 09/06/18 at 20:41; Status DC Lidocaine HCl (Xylocaine-Mpf 1% 2ml Vial) 2 ml 1X PRN PRN ID IV START; Start at 08:45; Stop 09/07/18 at 08:44; Status DC Hydromorphone HCl (Dilaudid) 0.5 mg PRN Q10MIN PRN IV SEV PAIN, Second choice; Start 09/06/18 at 08:45; Stop 09/07/18 at 08:44; Status DC Prochlorperazine Edisylate (Compazine) 5 mg PACU PRN PRN IV NAUSEA, MRX1 Last administered on 09/06/18at 14:31; Start 09/06/18 at 08:45; Stop 09/07/18 at 08:44 ; Status DC Morphine Sulfate (Morphine Sulfate) 2 mg PRN Q2HR PRN IV MODERATE PAIN Last administered on 09/07/18at 08:57; Start 09/06/18 at 11:30 Propofol 20 ml @ As Directed STK-MED ONCE IV ; Start 09/06/18 at 12:51; Stop at 12:52; Status DC Dexamethasone Sodium Phosphate (Decadron) 20 mg STK-MED ONCE .ROUTE ; Start at 12:51; Stop 09/06/18 at 12:52; Status DC Ondansetron HCl (Zofran) 4 mg STK-MED ONCE .ROUTE ; Start 09/06/18 at 12:51; Stop 09/06/18 at 12:52; Status DC Lidocaine HCl (Lidocaine Pf 2% Vial) 5 ml STK-MED ONCE .ROUTE ; Start 09/06/18 at 12:51; Stop 09/06/18 at 12:52; Status DC Famotidine (Pepcid Vial) 20 mg STK-MED ONCE .ROUTE ; Start 09/06/18 at 12:51; Stop 09/06/18 at 12:52; Status DC Midazolam HCl (Versed) 2 mg STK-MED ONCE .ROUTE ; Start 09/06/18 at 12:52; Stop 09/06/18 at 12:53; Status DC Fentanyl Citrate (Fentanyl 2ml Vial) 100 mcg STK-MED ONCE .ROUTE ; Start at 12:52; Stop 09/06/18 at 12:53; Status DC Rocuronium [place] (Zemuron) 50 mg STK-MED ONCE .ROUTE ; Start 09/06/18 at 12:52 ; Stop 09/06/18 at 12:53; Status DC Bupivacaine HCl/ Epinephrine Bitart (Sensorcain-Mpf Epi 0.5%-[id number]) 30 ml STK -MED ONCE .ROUTE Last administered on 09/06/18at 13:36; Start 09/06/18 at 11:54 ; Stop 09/06/18 at 12:54; Status DC Cefazolin Sodium (Ancef) 1 gm STK-MED ONCE .ROUTE ; Start 09/06/18 at 13:29; Stop 09/06/18 at 13:30; Status DC Cefazolin Sodium (Ancef) 1 gm STK-MED ONCE .ROUTE ; Start 09/06/18 at 13:29; Stop 09/06/18 at 13:30; Status DC Sodium Chloride (SODIUM CHLORIDE 20ml) 20 ml STK-MED ONCE IJ ; Start 09/06/18 at 13:29; Stop 09/06/18 at 13:30; Status DC Glycopyrrolate (Robinul) 1 mg STK-MED ONCE .ROUTE ; Start 09/06/18 at 13:54; Stop 09/06/18 at 13:55; Status DC Neostigmine Methylsulfate (Neostigmine Methylsulfate) 5 mg STK-MED ONCE .ROUTE ; Start 09/06/18 at 13:54; Stop 09/06/18 at 13:55; Status DC Desflurane (Suprane) 30 ml STK-MED ONCE IH ; Start 09/06/18 at 14:00; Stop 09/06 at 14:01; Status DC Cefoxitin Sodium (Mefoxin) 1 gm Q8H IVP Last administered on 09/07/18at 05:05; Start 09/06/18 at 21:00; Stop 09/07/18 at 13:01 Sodium Chloride (Normal Saline Flush) 3 ml QSHIFT PRN IV AFTER MEDS AND BLOOD DRAWS; Start 09/06/18 at 14:15 Morphine Sulfate (Morphine Sulfate) 2 mg PRN Q3HRS PRN IV PAIN; Start 09/06/18 at 14:15 Oxycodone/ Acetaminophen (Percocet 5/325) 1 tab PRN Q4HRS PRN PO MILD PAIN, 1ST CHOICE Last administered on 09/06/18at 19:57; Start 09/06/18 at 14:15 Oxycodone/ Acetaminophen (Percocet 5/325) 2 tab PRN Q4HRS PRN PO MODERATE PAIN , SEVERE PAIN Last administered on 09/07/18at 07:17; Start 09/06/18 at 14:15 Ketorolac Tromethamine (Toradol 15mg Vial) 15 mg Q6HRS IV Last administered on 09/07/18at 05:06; Start 09/06/18 at 18:00; Stop 09/08/18 at 17:59 Ondansetron HCl (Zofran) 4 mg PRN Q6HRS PRN IV NAUSEA, 1ST CHOICE; Start at 14:15 Dextrose/Lactated Ringer's 1,000 ml @ 75 mls/hr [id number] IV ; Start 09/06/18 at 14:07; Stop 09/07/18 at 03:33; Status DC Fentanyl Citrate (Fentanyl 2ml Vial) 100 mcg STK-MED ONCE .ROUTE ; Start at 14:27; Stop 09/06/18 at 14:28; Status DC Prochlorperazine Edisylate (Compazine) 10 mg STK-MED ONCE .ROUTE ; Start at 14:27; Stop 09/06/18 at 14:28; Status DC Calcium Carbonate/ Glycine (Tums) 500 mg PRN AFTMEALHC PRN PO INDIGESTION Last administered on 09/07/18at 07:16; Start 09/07/18 at 06:45 Sodium Chloride 1,000 ml @ 75 mls/hr [id number] IV ; Start 09/07/18 at 11:45 Active Scripts Active Reported Levemir (Insulin Detemir) 100 Unit/1 Ml Vial 30 Unit SQ HS Humalog (Insulin Lispro) 100 Unit/1 Ml Insuln.pen 0 SQ TIDWMEALS Paxil (Paroxetine Hcl) 20 Mg Tablet 1 Tab PO DAILY Vitals/I & O Vital Sign - Last 24 Hours 09/06/18 09/06/18 09/06/18 09/06/18 12:40 14:19 14:20 14:36 Temp 98.7 97.8 97.8 98.7 97.8 97.8 Pulse 75 88 76 Resp 18 20 20 B/P (MAP) 119/56 131/43 122/48 Pulse Ox 98 98 98 O2 Delivery Room Air Simple Mask Room Air Room Air O2 Flow Rate 8 8 09/06/18 09/06/18 09/06/18 09/06/18 14:49 15:04 15:19 15:25 Temp 97.8 97.8 97.8 97.8 97.8 97.8 Pulse 64 72 72 Resp 20 20 20 20 B/P (MAP) 116/55 122/48 119/39 Pulse Ox 96 96 91 98 O2 Delivery Room Air Room Air Nasal Cannula Nasal Cannula O2 Flow Rate 2 2.0 09/06/18 09/06/18 09/06/18 09/06/18 16:00 16:15 16:30 16:45 Pulse 73 93 103 Resp 18 18 18 18 B/P (MAP) 122/62 (82) 110/61 (77) 115/58 (77) Pulse Ox 94 93 94 O2 Delivery Room Air Room Air Room Air Room Air 09/06/18 09/06/18 09/06/18 09/06/18 17:00 17:15 17:45 18:15 Pulse 100 84 64 71 Resp 18 18 18 18 B/P (MAP) 121/77 (92) 114/73 (87) 124/65 (84) 101/55 (70) Pulse Ox 93 94 91 92 O2 Delivery Room Air Room Air Room Air Room Air 09/06/18 09/06/18 09/06/18 09/06/18 19:00 19:57 20:00 20:57 Temp 97.8 97.8 Pulse 78 Resp 18 20 20 B/P (MAP) 106/52 (70) Pulse Ox 90 90 O2 Delivery Room Air Room Air Room Air Room Air 09/06/18 09/07/18 09/07/18 09/07/18 22:47 02:12 02:46 03:12 Temp 98.1 98.1 98.1 98.1 Pulse 74 67 Resp 18 20 18 20 B/P (MAP) 103/53 (70) 102/49 (66) Pulse Ox 95 95 95 95 O2 Delivery Room Air Room Air Room Air 09/07/18 09/07/18 09/07/18 09/07/18 07:00 07:15 07:17 08:57 Temp 98.0 98.0 Pulse 87 Resp 18 B/P (MAP) 109/76 (87) Pulse Ox 98 O2 Delivery Room Air Room Air Room Air Room Air 09/07/18 09/07/18 09/07/18 09/07/18 08:57 09:53 09:57 10:37 O2 Delivery Room Air Room Air Room Air Room Air Intake and Output 09/06/18 09/06/18 09/07/18 14:59 22:59 06:59 Intake Total 1250 ml Output Total 10 ml Balance -10 ml 1250 ml JUAN SERNA MD Sep 07, 2018 11:52
--- NOTE | 2018-09-07 13:13 | PDOC ---
PROGRESS NOTES Chief Complaint Chief Complaint CC: abdominal pain, POD #1 from appendectomy History of Present Illness History of Present Illness Pt seen and examined this morning, pt sitting up right in bed with fiance at bedside States he has been passing flatus, denies BM since surgery, tolerating diet Denies any new complaints Vitals Vitals Vital Signs Date Time Temp Pulse Resp B/P (MAP) Pulse Ox O2 Delivery O2 Flow Rate FiO2 09/07/18 12:58 Room Air 09/07/18 07:00 98.0 87 18 109/76 (87) 98 98.0 09/06/18 15:25 2.0 Physical Exam General: Alert, Oriented X3, Cooperative, No acute distress Heart: Regular rate, Normal S1, Normal S2, No murmurs Lungs: Clear, Other (No crackles or wheezing) Abdomen: Normal bowel sounds, Soft, No hepatosplenomegaly, No masses Extremities: No clubbing, No cyanosis, No edema, Normal pulses Skin: No rashes, No breakdown, No significant lesion Labs LABS Laboratory Tests Test 09/06/18 15:08 09/06/18 20:34 09/07/18 05:10 09/07/18 07:26 Glucose (Fingerstick) 166 mg/dL (70-99) 316 mg/dL (70-99) 216 mg/dL (70-99) White Blood Count 7.5 x10^3/uL (4.0-11.0) Red Blood Count 4.64 x10^6/uL (4.30-5.70) Hemoglobin 13.9 g/dL (13.0-17.5) Hematocrit 40.3 % (39.0-53.0) Mean Corpuscular Volume 87 fL (79-100) Mean Corpuscular Hemoglobin 30 pg (25-35) Mean Corpuscular Hemoglobin Concent 35 g/dL (31-37) Red Cell Distribution Width 12.6 % (11.5-14.5) Platelet Count 154 x10^3/uL (140-400) Neutrophils (%) (Auto) 74 % (31-73) Lymphocytes (%) (Auto) 19 % (24-48) Monocytes (%) (Auto) 6 % (0-9) Eosinophils (%) (Auto) 0 % (0-3) Basophils (%) (Auto) 1 % (0-3) Neutrophils # (Auto) 5.5 x10^3uL (1.8-7.7) Lymphocytes # (Auto) 1.4 x10^3/uL (1.0-4.8) Monocytes # (Auto) 0.5 x10^3/uL (0.0-1.1) Eosinophils # (Auto) 0.0 x10^3/uL (0.0-0.7) Basophils # (Auto) 0.0 x10^3/uL (0.0-0.2) Sodium Level 139 mmol/L (136-145) Potassium Level 3.7 mmol/L (3.5-5.1) Chloride Level 101 mmol/L (98-107) Carbon Dioxide Level 28 mmol/L (21-32) Anion Gap 10 (6-14) Blood Urea Nitrogen 16 mg/dL (8-26) Creatinine 1.8 mg/dL (0.7-1.3) Estimated GFR (Cockcroft-Gault) 47.4 Glucose Level 234 mg/dL (70-99) Calcium Level 8.9 mg/dL (8.5-10.1) Test 09/07/18 11:34 Glucose (Fingerstick) 149 mg/dL (70-99) Review of Systems Review of Systems Denies N/V Denies CP/SOA Assessment and Plan Assessmemt and Plan Assessment: Appendicitis LEE DM1 Anxiety Plan: Consulted nephrology for LEE, Cr 0.9 on admission, 1.8 today NS started at 75/hr, encouraged po intake Recheck labs in am Pain control Home insulin OK to d/c when medically stable per Surgery, f/u with Dr Valle in 1-2 weeks in office Problems Medical Problems: (1) Acute appendicitis Status: Acute Comment Review of Relevant I have reviewed the following items merissa (where applicable) has been applied. Labs Laboratory Tests Test 09/05/18 22:03 09/05/18 22:29 09/06/18 09:09 09/06/18 11:21 Urine Collection Type Unknown Urine Color Yellow Urine Clarity Clear Urine pH 6.5 Urine Specific Decker 1.025 Urine Protein Negative mg/dL (NEG-TRACE) Urine Glucose (UA) Negative mg/dL (NEG) Urine Ketones (Stick) Negative mg/dL (NEG) Urine Blood Negative (NEG) Urine Nitrite Negative (NEG) Urine Bilirubin Negative (NEG) Urine Urobilinogen Dipstick 1.0 mg/dL (0.2 mg/dL) Urine Leukocyte Esterase Negative (NEG) Urine RBC 3-5 /HPF (0-2) Urine WBC 0 /HPF (0-4) Urine Squamous Epithelial Cells Few /LPF Urine Bacteria 0 /HPF (0-FEW) Urine Mucus Slight /LPF White Blood Count 15.0 x10^3/uL (4.0-11.0) Red Blood Count 5.32 x10^6/uL (4.30-5.70) Hemoglobin 15.5 g/dL (13.0-17.5) Hematocrit 45.0 % (39.0-53.0) Mean Corpuscular Volume 85 fL (79-100) Mean Corpuscular Hemoglobin 29 pg (25-35) Mean Corpuscular Hemoglobin Concent 34 g/dL (31-37) Red Cell Distribution Width 12.5 % (11.5-14.5) Platelet Count 193 x10^3/uL (140-400) Neutrophils (%) (Auto) 76 % (31-73) Lymphocytes (%) (Auto) 17 % (24-48) Monocytes (%) (Auto) 6 % (0-9) Eosinophils (%) (Auto) 1 % (0-3) Basophils (%) (Auto) 1 % (0-3) Neutrophils # (Auto) 11.4 x10^3uL (1.8-7.7) Lymphocytes # (Auto) 2.5 x10^3/uL (1.0-4.8) Monocytes # (Auto) 0.8 x10^3/uL (0.0-1.1) Eosinophils # (Auto) 0.2 x10^3/uL (0.0-0.7) Basophils # (Auto) 0.1 x10^3/uL (0.0-0.2) Sodium Level 140 mmol/L (136-145) Potassium Level 3.4 mmol/L (3.5-5.1) Chloride Level 100 mmol/L (98-107) Carbon Dioxide Level 27 mmol/L (21-32) Anion Gap 13 (6-14) Blood Urea Nitrogen 21 mg/dL (8-26) Creatinine 0.9 mg/dL (0.7-1.3) Estimated GFR (Cockcroft-Gault) 105.5 BUN/Creatinine Ratio 23 (6-20) Glucose Level 147 mg/dL (70-99) Calcium Level 9.3 mg/dL (8.5-10.1) Magnesium Level 2.2 mg/dL (1.8-2.4) Total Bilirubin 0.3 mg/dL (0.2-1.0) Aspartate Amino Transf (AST/SGOT) 19 U/L (15-37) Alanine Aminotransferase (ALT/SGPT) 51 U/L (16-63) Alkaline Phosphatase 84 U/L (46-116) Total Protein 7.8 g/dL (6.4-8.2) Albumin 4.3 g/dL (3.4-5.0) Albumin/Globulin Ratio 1.2 (1.0-1.7) Lipase 95 U/L (73-393) Glucose (Fingerstick) 185 mg/dL (70-99) 210 mg/dL (70-99) Test 09/06/18 15:08 09/06/18 20:34 09/07/18 05:10 09/07/18 07:26 Glucose (Fingerstick) 166 mg/dL (70-99) 316 mg/dL (70-99) 216 mg/dL (70-99) White Blood Count 7.5 x10^3/uL (4.0-11.0) Red Blood Count 4.64 x10^6/uL (4.30-5.70) Hemoglobin 13.9 g/dL (13.0-17.5) Hematocrit 40.3 % (39.0-53.0) Mean Corpuscular Volume 87 fL (79-100) Mean Corpuscular Hemoglobin 30 pg (25-35) Mean Corpuscular Hemoglobin Concent 35 g/dL (31-37) Red Cell Distribution Width 12.6 % (11.5-14.5) Platelet Count 154 x10^3/uL (140-400) Neutrophils (%) (Auto) 74 % (31-73) Lymphocytes (%) (Auto) 19 % (24-48) Monocytes (%) (Auto) 6 % (0-9) Eosinophils (%) (Auto) 0 % (0-3) Basophils (%) (Auto) 1 % (0-3) Neutrophils # (Auto) 5.5 x10^3uL (1.8-7.7) Lymphocytes # (Auto) 1.4 x10^3/uL (1.0-4.8) Monocytes # (Auto) 0.5 x10^3/uL (0.0-1.1) Eosinophils # (Auto) 0.0 x10^3/uL (0.0-0.7) Basophils # (Auto) 0.0 x10^3/uL (0.0-0.2) Sodium Level 139 mmol/L (136-145) Potassium Level 3.7 mmol/L (3.5-5.1) Chloride Level 101 mmol/L (98-107) Carbon Dioxide Level 28 mmol/L (21-32) Anion Gap 10 (6-14) Blood Urea Nitrogen 16 mg/dL (8-26) Creatinine 1.8 mg/dL (0.7-1.3) Estimated GFR (Cockcroft-Gault) 47.4 Glucose Level 234 mg/dL (70-99) Calcium Level 8.9 mg/dL (8.5-10.1) Test 09/07/18 11:34 Glucose (Fingerstick) 149 mg/dL (70-99) Laboratory Tests Test 09/06/18 15:08 09/06/18 20:34 09/07/18 05:10 09/07/18 07:26 Glucose (Fingerstick) 166 mg/dL (70-99) 316 mg/dL (70-99) 216 mg/dL (70-99) White Blood Count 7.5 x10^3/uL (4.0-11.0) Red Blood Count 4.64 x10^6/uL (4.30-5.70) Hemoglobin 13.9 g/dL (13.0-17.5) Hematocrit 40.3 % (39.0-53.0) Mean Corpuscular Volume 87 fL (79-100) Mean Corpuscular Hemoglobin 30 pg (25-35) Mean Corpuscular Hemoglobin Concent 35 g/dL (31-37) Red Cell Distribution Width 12.6 % (11.5-14.5) Platelet Count 154 x10^3/uL (140-400) Neutrophils (%) (Auto) 74 % (31-73) Lymphocytes (%) (Auto) 19 % (24-48) Monocytes (%) (Auto) 6 % (0-9) Eosinophils (%) (Auto) 0 % (0-3) Basophils (%) (Auto) 1 % (0-3) Neutrophils # (Auto) 5.5 x10^3uL (1.8-7.7) Lymphocytes # (Auto) 1.4 x10^3/uL (1.0-4.8) Monocytes # (Auto) 0.5 x10^3/uL (0.0-1.1) Eosinophils # (Auto) 0.0 x10^3/uL (0.0-0.7) Basophils # (Auto) 0.0 x10^3/uL (0.0-0.2) Sodium Level 139 mmol/L (136-145) Potassium Level 3.7 mmol/L (3.5-5.1) Chloride Level 101 mmol/L (98-107) Carbon Dioxide Level 28 mmol/L (21-32) Anion Gap 10 (6-14) Blood Urea Nitrogen 16 mg/dL (8-26) Creatinine 1.8 mg/dL (0.7-1.3) Estimated GFR (Cockcroft-Gault) 47.4 Glucose Level 234 mg/dL (70-99) Calcium Level 8.9 mg/dL (8.5-10.1) Test 09/07/18 11:34 Glucose (Fingerstick) 149 mg/dL (70-99) Medications Current Medications Ondansetron HCl (Zofran Odt) 4 mg 1X ONCE PO ; Start 09/05/18 at 23:00; Stop at 23:01; Status DC Ondansetron HCl (Zofran) 4 mg STK-MED ONCE .ROUTE ; Start 09/05/18 at 22:20; Stop 09/05/18 at 22:21; Status DC Sodium Chloride 1,000 ml @ 1,000 mls/hr 1X ONCE IV Last administered on at 22:32; Start 09/05/18 at 22:30; Stop 09/05/18 at 23:29; Status DC Ketorolac Tromethamine (Toradol 15mg Vial) 15 mg 1X ONCE IV Last administered on 09/05/18at 22:30; Start 09/05/18 at 22:30; Stop 09/05/18 at 22:53; Status DC Famotidine (Pepcid Vial) 20 mg 1X ONCE IVP Last administered on 09/05/18at 23: 01; Start 09/05/18 at 23:00; Stop 09/05/18 at 23:01; Status DC Metoclopramide HCl (Reglan Vial) 10 mg 1X ONCE IV Last administered on at 22:59; Start 09/05/18 at 23:00; Stop 09/05/18 at 23:01; Status DC Ondansetron HCl (Zofran) 4 mg PRN Q8HRS PRN IV NAUSEA/VOMITING; Start 09/06/18 at 00:00; Stop 09/06/18 at 23:59; Status DC Fentanyl Citrate (Fentanyl 2ml Vial) 50 mcg PRN Q2HR PRN IV PAIN Last administered on 09/07/18at 09:57; Start 09/06/18 at 00:00 Insulin Human Lispro (HumaLOG) 0-5 UNITS TIDWMEALS SQ ; Start 09/06/18 at 08:00 Dextrose (Dextrose 50%-Water Syringe) 12.5 gm PRN Q15MIN PRN IV SEE COMMENTS; Start 09/06/18 at 00:00 Piperacillin Sod/ Tazobactam Sod 3.375 gm/Sodium Chloride 50 ml @ 100 mls/hr 1X ONCE IV Last administered on 09/06/18at 00:32; Start 09/06/18 at 00:15; Stop 09/06/18 at 00:44; Status DC Sodium Chloride 1,000 ml @ 125 mls/hr 1X ONCE IV Last administered on at 00:33; Start 09/06/18 at 00:15; Stop 09/06/18 at 08:14; Status DC Ondansetron HCl (Zofran) 4 mg PRN Q6HRS PRN IV NAUSEA/VOMITING; Start 09/06/18 at 08:45; Stop 09/07/18 at 08:44; Status DC Fentanyl Citrate (Fentanyl 2ml Vial) 25 mcg PRN Q5MIN PRN IV MILD PAIN; Start 09/06/18 at 08:45; Stop 09/07/18 at 08:44; Status DC Fentanyl Citrate (Fentanyl 2ml Vial) 50 mcg PRN Q5MIN PRN IV MODERATE TO SEVERE PAIN Last administered on 09/06/18at 15:25; Start 09/06/18 at 08:45; Stop 09/07/18 at 08:44; Status DC Morphine Sulfate (Morphine Sulfate) 1 mg PRN Q10MIN PRN IV SEVERE PAIN; Start 09/06/18 at 08:45; Stop 09/07/18 at 08:44; Status DC Ringer's Solution 1,000 ml @ 30 mls/hr Q24H IV ; Start 09/06/18 at 08:42; Stop 09/06/18 at 20:41; Status DC Lidocaine HCl (Xylocaine-Mpf 1% 2ml Vial) 2 ml 1X PRN PRN ID IV START; Start at 08:45; Stop 09/07/18 at 08:44; Status DC Hydromorphone HCl (Dilaudid) 0.5 mg PRN Q10MIN PRN IV SEV PAIN, Second choice; Start 09/06/18 at 08:45; Stop 09/07/18 at 08:44; Status DC Prochlorperazine Edisylate (Compazine) 5 mg PACU PRN PRN IV NAUSEA, MRX1 Last administered on 09/06/18at 14:31; Start 09/06/18 at 08:45; Stop 09/07/18 at 08:44 ; Status DC Morphine Sulfate (Morphine Sulfate) 2 mg PRN Q2HR PRN IV MODERATE PAIN Last administered on 09/07/18at 08:57; Start 09/06/18 at 11:30 Propofol 20 ml @ As Directed STK-MED ONCE IV ; Start 09/06/18 at 12:51; Stop at 12:52; Status DC Dexamethasone Sodium Phosphate (Decadron) 20 mg STK-MED ONCE .ROUTE ; Start at 12:51; Stop 09/06/18 at 12:52; Status DC Ondansetron HCl (Zofran) 4 mg STK-MED ONCE .ROUTE ; Start 09/06/18 at 12:51; Stop 09/06/18 at 12:52; Status DC Lidocaine HCl (Lidocaine Pf 2% Vial) 5 ml STK-MED ONCE .ROUTE ; Start 09/06/18 at 12:51; Stop 09/06/18 at 12:52; Status DC Famotidine (Pepcid Vial) 20 mg STK-MED ONCE .ROUTE ; Start 09/06/18 at 12:51; Stop 09/06/18 at 12:52; Status DC Midazolam HCl (Versed) 2 mg STK-MED ONCE .ROUTE ; Start 09/06/18 at 12:52; Stop 09/06/18 at 12:53; Status DC Fentanyl Citrate (Fentanyl 2ml Vial) 100 mcg STK-MED ONCE .ROUTE ; Start at 12:52; Stop 09/06/18 at 12:53; Status DC Rocuronium [place] (Zemuron) 50 mg STK-MED ONCE .ROUTE ; Start 09/06/18 at 12:52 ; Stop 09/06/18 at 12:53; Status DC Bupivacaine HCl/ Epinephrine Bitart (Sensorcain-Mpf Epi 0.5%-1:[id number]) 30 ml STK -MED ONCE .ROUTE Last administered on 09/06/18at 13:36; Start 09/06/18 at 11:54 ; Stop 09/06/18 at 12:54; Status DC Cefazolin Sodium (Ancef) 1 gm STK-MED ONCE .ROUTE ; Start 09/06/18 at 13:29; Stop 09/06/18 at 13:30; Status DC Cefazolin Sodium (Ancef) 1 gm STK-MED ONCE .ROUTE ; Start 09/06/18 at 13:29; Stop 09/06/18 at 13:30; Status DC Sodium Chloride (SODIUM CHLORIDE 20ml) 20 ml STK-MED ONCE IJ ; Start 09/06/18 at 13:29; Stop 09/06/18 at 13:30; Status DC Glycopyrrolate (Robinul) 1 mg STK-MED ONCE .ROUTE ; Start 09/06/18 at 13:54; Stop 09/06/18 at 13:55; Status DC Neostigmine Methylsulfate (Neostigmine Methylsulfate) 5 mg STK-MED ONCE .ROUTE ; Start 09/06/18 at 13:54; Stop 09/06/18 at 13:55; Status DC Desflurane (Suprane) 30 ml STK-MED ONCE IH ; Start 09/06/18 at 14:00; Stop 09/06 at 14:01; Status DC Cefoxitin Sodium (Mefoxin) 1 gm Q8H IVP Last administered on 09/07/18at 12:58; Start 09/06/18 at 21:00; Stop 09/07/18 at 13:01 Sodium Chloride (Normal Saline Flush) 3 ml QSHIFT PRN IV AFTER MEDS AND BLOOD DRAWS; Start 09/06/18 at 14:15 Morphine Sulfate (Morphine Sulfate) 2 mg PRN Q3HRS PRN IV PAIN; Start 09/06/18 at 14:15 Oxycodone/ Acetaminophen (Percocet 5/325) 1 tab PRN Q4HRS PRN PO MILD PAIN, 1ST CHOICE Last administered on 09/06/18at 19:57; Start 09/06/18 at 14:15 Oxycodone/ Acetaminophen (Percocet 5/325) 2 tab PRN Q4HRS PRN PO MODERATE PAIN , SEVERE PAIN Last administered on 09/07/18at 12:58; Start 09/06/18 at 14:15 Ketorolac Tromethamine (Toradol 15mg Vial) 15 mg Q6HRS IV Last administered on 09/07/18at 11:49; Start 09/06/18 at 18:00; Stop 09/08/18 at 17:59 Ondansetron HCl (Zofran) 4 mg PRN Q6HRS PRN IV NAUSEA, 1ST CHOICE; Start at 14:15 Dextrose/Lactated Ringer's 1,000 ml @ 75 mls/hr [id number] IV ; Start 09/06/18 at 14:07; Stop 09/07/18 at 03:33; Status DC Fentanyl Citrate (Fentanyl 2ml Vial) 100 mcg STK-MED ONCE .ROUTE ; Start at 14:27; Stop 09/06/18 at 14:28; Status DC Prochlorperazine Edisylate (Compazine) 10 mg STK-MED ONCE .ROUTE ; Start at 14:27; Stop 09/06/18 at 14:28; Status DC Calcium Carbonate/ Glycine (Tums) 500 mg PRN AFTMEALHC PRN PO INDIGESTION Last administered on 09/07/18at 07:16; Start 09/07/18 at 06:45 Sodium Chloride 1,000 ml @ 75 mls/hr [id number] IV Last administered on at 11:49; Start 09/07/18 at 11:45 Active Scripts Active Reported Levemir (Insulin Detemir) 100 Unit/1 Ml Vial 30 Unit SQ HS Humalog (Insulin Lispro) 100 Unit/1 Ml Insuln.pen 0 SQ TIDWMEALS Paxil (Paroxetine Hcl) 20 Mg Tablet 1 Tab PO DAILY Vitals/I & O Vital Sign - Last 24 Hours 09/06/18 09/06/18 09/06/18 09/06/18 14:19 14:20 14:36 14:49 Temp 97.8 97.8 97.8 97.8 97.8 97.8 Pulse 88 76 64 Resp 20 20 20 B/P (MAP) 131/43 122/48 116/55 Pulse Ox 98 98 96 O2 Delivery Simple Mask Room Air Room Air Room Air O2 Flow Rate 8 8 09/06/18 09/06/18 09/06/18 09/06/18 15:04 15:19 15:25 16:00 Temp 97.8 97.8 97.8 97.8 Pulse 72 72 73 Resp 20 20 20 18 B/P (MAP) 122/48 119/39 122/62 (82) Pulse Ox 96 91 98 94 O2 Delivery Room Air Nasal Cannula Nasal Cannula Room Air O2 Flow Rate 2 2.0 09/06/18 09/06/18 09/06/18 09/06/18 16:15 16:30 16:45 17:00 Pulse 93 103 100 Resp 18 18 18 18 B/P (MAP) 110/61 (77) 115/58 (77) 121/77 (92) Pulse Ox 93 94 93 O2 Delivery Room Air Room Air Room Air Room Air 09/06/18 09/06/18 09/06/18 09/06/18 17:15 17:45 18:15 19:00 Temp 97.8 97.8 Pulse 84 64 71 78 Resp 18 18 18 18 B/P (MAP) 114/73 (87) 124/65 (84) 101/55 (70) 106/52 (70) Pulse Ox 94 91 92 90 O2 Delivery Room Air Room Air Room Air Room Air 09/06/18 09/06/18 09/06/18 09/06/18 19:57 20:00 20:57 22:47 Temp 98.1 98.1 Pulse 74 Resp 20 20 18 B/P (MAP) 103/53 (70) Pulse Ox 90 95 O2 Delivery Room Air Room Air Room Air Room Air 09/07/18 09/07/18 09/07/18 09/07/18 02:12 02:46 03:12 07:00 Temp 98.1 98.0 98.1 98.0 Pulse 67 87 Resp 20 18 18 B/P (MAP) 102/49 (66) 109/76 (87) Pulse Ox 95 95 95 98 O2 Delivery Room Air Room Air Room Air 09/07/18 09/07/18 09/07/18 09/07/18 07:15 07:17 08:57 08:57 O2 Delivery Room Air Room Air Room Air Room Air 09/07/18 09/07/18 09/07/18 09/07/18 09:53 09:57 10:37 12:58 O2 Delivery Room Air Room Air Room Air Room Air Intake and Output 09/06/18 09/06/18 09/07/18 14:59 22:59 06:59 Intake Total 1250 ml Output Total 10 ml Balance -10 ml 1250 ml CHEPE BARNES III DO Sep 07, 2018 13:12
[2018-09-07 15:00] VITALS: BP 115/57
[2018-09-07 19:00] VITALS: BP 107/65
[2018-09-07 23:00] VITALS: BP 114/72
[2018-09-08] MEDS: IV NORMAL SALINE 1000ML BAG 1,000 ML IV SCH (01:00)
[2018-09-08 03:00] VITALS: BP 124/64
[2018-09-08 05:32] LABS: BASO % 1 % (0-3); EOS # 0.1 x10^3/uL (0.0-0.7); EOS % 1 % (0-3); HEMATOCRIT 38.2 % (39.0-53.0); HEMOGLOBIN 13.5 g/dL (13.0-17.5); LYMPH # 1.7 x10^3/uL (1.0-4.8); LYMPH % 37 % (24-48); MEAN CORPUSCULAR HEMOGLOBIN 30 pg (25-35); MEAN CORPUSCULAR HGB CONC 35 g/dL (31-37); MEAN CORPUSCULAR VOLUME 86 fL (79-100); MONO # 0.4 x10^3/uL (0.0-1.1); MONO % 9 % (0-9); NEUT # 2.5 x10^3uL (1.8-7.7); NEUT % 52 % (31-73); PLATELET COUNT 142 x10^3/uL (140-400); RED BLOOD COUNT 4.44 x10^6/uL (4.30-5.70); RED CELL DISTRIBUTION WIDTH 12.3 % (11.5-14.5); WHITE BLOOD COUNT 4.7 x10^3/uL (4.0-11.0)
[2018-09-08 05:35] LABS: CALCIUM 8.9 mg/dL (8.5-10.1); GFR 93.4; POTASSIUM 3.7 mmol/L (3.5-5.1)
[2018-09-08] MEDS: KETOROLAC 15 MG/ML VIAL. IV SCH ×2 (06:00→12:00)
[2018-09-08 07:02] VITALS: BP 113/66
[2018-09-08] MEDS: INSULIN LISPRO 300 UNITS/3 ML INSULN.PEN. SQ SCH ×2 (08:00→12:00)
--- NOTE | 2018-09-08 09:15 | NUR ---
BS 215, pt used home ss of 10 Units.
--- NOTE | 2018-09-08 09:36 | PDOC ---
PROGRESS NOTES Subjective Subjective feeling well, hoping to go home Objective Objective Vital Signs Date Time Temp Pulse Resp B/P (MAP) Pulse Ox O2 Delivery O2 Flow Rate FiO2 09/08/18 07:02 98.1 88 18 113/66 (82) 95 Room Air 98.1 09/06/18 15:25 2.0 Intake and Output 09/08/18 07:00 Intake Total 1080 ml Balance 1080 ml Intake Oral 1080 ml # Voids 2 Physical Exam Abdomen: Soft, No tenderness Assessment Assessment Problems Medical Problems: (1) Acute appendicitis Status: Acute Plan Plan of Care Stable for DC from surgery standpoint Comment Review of Relevant I have reviewed the following items merissa (where applicable) has been applied. Labs Laboratory Tests Test 09/06/18 11:21 09/06/18 15:08 09/06/18 20:34 09/07/18 05:10 Glucose (Fingerstick) 210 mg/dL (70-99) 166 mg/dL (70-99) 316 mg/dL (70-99) White Blood Count 7.5 x10^3/uL (4.0-11.0) Red Blood Count 4.64 x10^6/uL (4.30-5.70) Hemoglobin 13.9 g/dL (13.0-17.5) Hematocrit 40.3 % (39.0-53.0) Mean Corpuscular Volume 87 fL (79-100) Mean Corpuscular Hemoglobin 30 pg (25-35) Mean Corpuscular Hemoglobin Concent 35 g/dL (31-37) Red Cell Distribution Width 12.6 % (11.5-14.5) Platelet Count 154 x10^3/uL (140-400) Neutrophils (%) (Auto) 74 % (31-73) Lymphocytes (%) (Auto) 19 % (24-48) Monocytes (%) (Auto) 6 % (0-9) Eosinophils (%) (Auto) 0 % (0-3) Basophils (%) (Auto) 1 % (0-3) Neutrophils # (Auto) 5.5 x10^3uL (1.8-7.7) Lymphocytes # (Auto) 1.4 x10^3/uL (1.0-4.8) Monocytes # (Auto) 0.5 x10^3/uL (0.0-1.1) Eosinophils # (Auto) 0.0 x10^3/uL (0.0-0.7) Basophils # (Auto) 0.0 x10^3/uL (0.0-0.2) Sodium Level 139 mmol/L (136-145) Potassium Level 3.7 mmol/L (3.5-5.1) Chloride Level 101 mmol/L (98-107) Carbon Dioxide Level 28 mmol/L (21-32) Anion Gap 10 (6-14) Blood Urea Nitrogen 16 mg/dL (8-26) Creatinine 1.8 mg/dL (0.7-1.3) Estimated GFR (Cockcroft-Gault) 47.4 Glucose Level 234 mg/dL (70-99) Calcium Level 8.9 mg/dL (8.5-10.1) Test 09/07/18 07:26 09/07/18 11:34 09/07/18 16:25 09/07/18 20:50 Glucose (Fingerstick) 216 mg/dL (70-99) 149 mg/dL (70-99) 122 mg/dL (70-99) 105 mg/dL (70-99) Test 09/08/18 04:50 09/08/18 07:30 White Blood Count 4.7 x10^3/uL (4.0-11.0) Red Blood Count 4.44 x10^6/uL (4.30-5.70) Hemoglobin 13.5 g/dL (13.0-17.5) Hematocrit 38.2 % (39.0-53.0) Mean Corpuscular Volume 86 fL (79-100) Mean Corpuscular Hemoglobin 30 pg (25-35) Mean Corpuscular Hemoglobin Concent 35 g/dL (31-37) Red Cell Distribution Width 12.3 % (11.5-14.5) Platelet Count 142 x10^3/uL (140-400) Neutrophils (%) (Auto) 52 % (31-73) Lymphocytes (%) (Auto) 37 % (24-48) Monocytes (%) (Auto) 9 % (0-9) Eosinophils (%) (Auto) 1 % (0-3) Basophils (%) (Auto) 1 % (0-3) Neutrophils # (Auto) 2.5 x10^3uL (1.8-7.7) Lymphocytes # (Auto) 1.7 x10^3/uL (1.0-4.8) Monocytes # (Auto) 0.4 x10^3/uL (0.0-1.1) Eosinophils # (Auto) 0.1 x10^3/uL (0.0-0.7) Basophils # (Auto) 0.0 x10^3/uL (0.0-0.2) Sodium Level 138 mmol/L (136-145) Potassium Level 3.7 mmol/L (3.5-5.1) Chloride Level 101 mmol/L (98-107) Carbon Dioxide Level 27 mmol/L (21-32) Anion Gap 10 (6-14) Blood Urea Nitrogen 16 mg/dL (8-26) Creatinine 1.0 mg/dL (0.7-1.3) Estimated GFR (Cockcroft-Gault) 93.4 Glucose Level 262 mg/dL (70-99) Calcium Level 8.9 mg/dL (8.5-10.1) Glucose (Fingerstick) 215 mg/dL (70-99) Laboratory Tests Test 09/07/18 11:34 09/07/18 16:25 09/07/18 20:50 09/08/18 04:50 Glucose (Fingerstick) 149 mg/dL (70-99) 122 mg/dL (70-99) 105 mg/dL (70-99) White Blood Count 4.7 x10^3/uL (4.0-11.0) Red Blood Count 4.44 x10^6/uL (4.30-5.70) Hemoglobin 13.5 g/dL (13.0-17.5) Hematocrit 38.2 % (39.0-53.0) Mean Corpuscular Volume 86 fL (79-100) Mean Corpuscular Hemoglobin 30 pg (25-35) Mean Corpuscular Hemoglobin Concent 35 g/dL (31-37) Red Cell Distribution Width 12.3 % (11.5-14.5) Platelet Count 142 x10^3/uL (140-400) Neutrophils (%) (Auto) 52 % (31-73) Lymphocytes (%) (Auto) 37 % (24-48) Monocytes (%) (Auto) 9 % (0-9) Eosinophils (%) (Auto) 1 % (0-3) Basophils (%) (Auto) 1 % (0-3) Neutrophils # (Auto) 2.5 x10^3uL (1.8-7.7) Lymphocytes # (Auto) 1.7 x10^3/uL (1.0-4.8) Monocytes # (Auto) 0.4 x10^3/uL (0.0-1.1) Eosinophils # (Auto) 0.1 x10^3/uL (0.0-0.7) Basophils # (Auto) 0.0 x10^3/uL (0.0-0.2) Sodium Level 138 mmol/L (136-145) Potassium Level 3.7 mmol/L (3.5-5.1) Chloride Level 101 mmol/L (98-107) Carbon Dioxide Level 27 mmol/L (21-32) Anion Gap 10 (6-14) Blood Urea Nitrogen 16 mg/dL (8-26) Creatinine 1.0 mg/dL (0.7-1.3) Estimated GFR (Cockcroft-Gault) 93.4 Glucose Level 262 mg/dL (70-99) Calcium Level 8.9 mg/dL (8.5-10.1) Test 09/08/18 07:30 Glucose (Fingerstick) 215 mg/dL (70-99) Medications Current Medications Ondansetron HCl (Zofran Odt) 4 mg 1X ONCE PO ; Start 09/05/18 at 23:00; Stop at 23:01; Status DC Ondansetron HCl (Zofran) 4 mg STK-MED ONCE .ROUTE ; Start 09/05/18 at 22:20; Stop 09/05/18 at 22:21; Status DC Sodium Chloride 1,000 ml @ 1,000 mls/hr 1X ONCE IV Last administered on at 22:32; Start 09/05/18 at 22:30; Stop 09/05/18 at 23:29; Status DC Ketorolac Tromethamine (Toradol 15mg Vial) 15 mg 1X ONCE IV Last administered on 09/05/18at 22:30; Start 09/05/18 at 22:30; Stop 09/05/18 at 22:53; Status DC Famotidine (Pepcid Vial) 20 mg 1X ONCE IVP Last administered on 09/05/18at 23: 01; Start 09/05/18 at 23:00; Stop 09/05/18 at 23:01; Status DC Metoclopramide HCl (Reglan Vial) 10 mg 1X ONCE IV Last administered on at 22:59; Start 09/05/18 at 23:00; Stop 09/05/18 at 23:01; Status DC Ondansetron HCl (Zofran) 4 mg PRN Q8HRS PRN IV NAUSEA/VOMITING; Start 09/06/18 at 00:00; Stop 09/06/18 at 23:59; Status DC Fentanyl Citrate (Fentanyl 2ml Vial) 50 mcg PRN Q2HR PRN IV PAIN Last administered on 09/07/18at 16:11; Start 09/06/18 at 00:00 Insulin Human Lispro (HumaLOG) 0-5 UNITS TIDWMEALS SQ ; Start 09/06/18 at 08:00 Dextrose (Dextrose 50%-Water Syringe) 12.5 gm PRN Q15MIN PRN IV SEE COMMENTS; Start 09/06/18 at 00:00 Piperacillin Sod/ Tazobactam Sod 3.375 gm/Sodium Chloride 50 ml @ 100 mls/hr 1X ONCE IV Last administered on 09/06/18at 00:32; Start 09/06/18 at 00:15; Stop 09/06/18 at 00:44; Status DC Sodium Chloride 1,000 ml @ 125 mls/hr 1X ONCE IV Last administered on at 00:33; Start 09/06/18 at 00:15; Stop 09/06/18 at 08:14; Status DC Ondansetron HCl (Zofran) 4 mg PRN Q6HRS PRN IV NAUSEA/VOMITING; Start 09/06/18 at 08:45; Stop 09/07/18 at 08:44; Status DC Fentanyl Citrate (Fentanyl 2ml Vial) 25 mcg PRN Q5MIN PRN IV MILD PAIN; Start 09/06/18 at 08:45; Stop 09/07/18 at 08:44; Status DC Fentanyl Citrate (Fentanyl 2ml Vial) 50 mcg PRN Q5MIN PRN IV MODERATE TO SEVERE PAIN Last administered on 09/06/18at 15:25; Start 09/06/18 at 08:45; Stop 09/07/18 at 08:44; Status DC Morphine Sulfate (Morphine Sulfate) 1 mg PRN Q10MIN PRN IV SEVERE PAIN; Start 09/06/18 at 08:45; Stop 09/07/18 at 08:44; Status DC Ringer's Solution 1,000 ml @ 30 mls/hr Q24H IV ; Start 09/06/18 at 08:42; Stop 09/06/18 at 20:41; Status DC Lidocaine HCl (Xylocaine-Mpf 1% 2ml Vial) 2 ml 1X PRN PRN ID IV START; Start at 08:45; Stop 09/07/18 at 08:44; Status DC Hydromorphone HCl (Dilaudid) 0.5 mg PRN Q10MIN PRN IV SEV PAIN, Second choice; Start 09/06/18 at 08:45; Stop 09/07/18 at 08:44; Status DC Prochlorperazine Edisylate (Compazine) 5 mg PACU PRN PRN IV NAUSEA, MRX1 Last administered on 09/06/18at 14:31; Start 09/06/18 at 08:45; Stop 09/07/18 at 08:44 ; Status DC Morphine Sulfate (Morphine Sulfate) 2 mg PRN Q2HR PRN IV MODERATE PAIN Last administered on 09/07/18at 08:57; Start 09/06/18 at 11:30 Propofol 20 ml @ As Directed STK-MED ONCE IV ; Start 09/06/18 at 12:51; Stop at 12:52; Status DC Dexamethasone Sodium Phosphate (Decadron) 20 mg STK-MED ONCE .ROUTE ; Start at 12:51; Stop 09/06/18 at 12:52; Status DC Ondansetron HCl (Zofran) 4 mg STK-MED ONCE .ROUTE ; Start 09/06/18 at 12:51; Stop 09/06/18 at 12:52; Status DC Lidocaine HCl (Lidocaine Pf 2% Vial) 5 ml STK-MED ONCE .ROUTE ; Start 09/06/18 at 12:51; Stop 09/06/18 at 12:52; Status DC Famotidine (Pepcid Vial) 20 mg STK-MED ONCE .ROUTE ; Start 09/06/18 at 12:51; Stop 09/06/18 at 12:52; Status DC Midazolam HCl (Versed) 2 mg STK-MED ONCE .ROUTE ; Start 09/06/18 at 12:52; Stop 09/06/18 at 12:53; Status DC Fentanyl Citrate (Fentanyl 2ml Vial) 100 mcg STK-MED ONCE .ROUTE ; Start at 12:52; Stop 09/06/18 at 12:53; Status DC Rocuronium [place] (Zemuron) 50 mg STK-MED ONCE .ROUTE ; Start 09/06/18 at 12:52 ; Stop 09/06/18 at 12:53; Status DC Bupivacaine HCl/ Epinephrine Bitart (Sensorcain-Mpf Epi 0.5%-[id number]) 30 ml STK -MED ONCE .ROUTE Last administered on 09/06/18at 13:36; Start 09/06/18 at 11:54 ; Stop 09/06/18 at 12:54; Status DC Cefazolin Sodium (Ancef) 1 gm STK-MED ONCE .ROUTE ; Start 09/06/18 at 13:29; Stop 09/06/18 at 13:30; Status DC Cefazolin Sodium (Ancef) 1 gm STK-MED ONCE .ROUTE ; Start 09/06/18 at 13:29; Stop 09/06/18 at 13:30; Status DC Sodium Chloride (SODIUM CHLORIDE 20ml) 20 ml STK-MED ONCE IJ ; Start 09/06/18 at 13:29; Stop 09/06/18 at 13:30; Status DC Glycopyrrolate (Robinul) 1 mg STK-MED ONCE .ROUTE ; Start 09/06/18 at 13:54; Stop 09/06/18 at 13:55; Status DC Neostigmine Methylsulfate (Neostigmine Methylsulfate) 5 mg STK-MED ONCE .ROUTE ; Start 09/06/18 at 13:54; Stop 09/06/18 at 13:55; Status DC Desflurane (Suprane) 30 ml STK-MED ONCE IH ; Start 09/06/18 at 14:00; Stop 09/06 at 14:01; Status DC Cefoxitin Sodium (Mefoxin) 1 gm Q8H IVP Last administered on 09/07/18at 12:58; Start 09/06/18 at 21:00; Stop 09/07/18 at 13:01; Status DC Sodium Chloride (Normal Saline Flush) 3 ml QSHIFT PRN IV AFTER MEDS AND BLOOD DRAWS; Start 09/06/18 at 14:15 Morphine Sulfate (Morphine Sulfate) 2 mg PRN Q3HRS PRN IV PAIN; Start 09/06/18 at 14:15 Oxycodone/ Acetaminophen (Percocet 5/325) 1 tab PRN Q4HRS PRN PO MILD PAIN, 1ST CHOICE Last administered on 09/06/18at 19:57; Start 09/06/18 at 14:15 Oxycodone/ Acetaminophen (Percocet 5/325) 2 tab PRN Q4HRS PRN PO MODERATE PAIN , SEVERE PAIN Last administered on 09/07/18at 20:42; Start 09/06/18 at 14:15 Ketorolac Tromethamine (Toradol 15mg Vial) 15 mg Q6HRS IV Last administered on 09/08/18at 06:00; Start 09/06/18 at 18:00; Stop 09/08/18 at 17:59 Ondansetron HCl (Zofran) 4 mg PRN Q6HRS PRN IV NAUSEA, 1ST CHOICE; Start at 14:15 Dextrose/Lactated Ringer's 1,000 ml @ 75 mls/hr [id number] IV ; Start 09/06/18 at 14:07; Stop 09/07/18 at 03:33; Status DC Fentanyl Citrate (Fentanyl 2ml Vial) 100 mcg STK-MED ONCE .ROUTE ; Start at 14:27; Stop 09/06/18 at 14:28; Status DC Prochlorperazine Edisylate (Compazine) 10 mg STK-MED ONCE .ROUTE ; Start at 14:27; Stop 09/06/18 at 14:28; Status DC Calcium Carbonate/ Glycine (Tums) 500 mg PRN AFTMEALHC PRN PO INDIGESTION Last administered on 09/07/18at 23:41; Start 09/07/18 at 06:45 Sodium Chloride 1,000 ml @ 75 mls/hr [id number] IV Last administered on at 01:00; Start 4/20/19 at 11:45 Active Scripts Active Reported Levemir (Insulin Detemir) 100 Unit/1 Ml Vial 30 Unit SQ HS Humalog (Insulin Lispro) 100 Unit/1 Ml Insuln.pen 0 SQ TIDWMEALS Paxil (Paroxetine Hcl) 20 Mg Tablet 1 Tab PO DAILY Vitals/I & O Vital Sign - Last 24 Hours 09/07/18 09/07/18 09/07/18 09/07/18 09:53 09:57 11:00 12:58 Temp 98.3 98.3 Pulse 73 Resp 18 B/P (MAP) 117/62 (80) Pulse Ox 94 O2 Delivery Room Air Room Air Room Air Room Air 09/07/18 09/07/18 09/07/18 09/07/18 15:00 16:11 17:09 19:00 Temp 98.2 98.4 98.2 98.4 Pulse 78 79 Resp 18 18 B/P (MAP) 115/57 (76) 107/65 (79) Pulse Ox 96 97 O2 Delivery Room Air Room Air Room Air Room Air 09/07/18 09/07/18 09/07/18 09/07/18 20:00 20:42 21:42 23:00 Temp 98.4 98.4 Pulse 85 Resp 18 18 18 B/P (MAP) 114/72 (86) Pulse Ox 95 O2 Delivery Room Air Room Air Room Air Room Air 09/08/18 09/08/18 03:00 07:02 Temp 98.0 98.1 98.0 98.1 Pulse 73 88 Resp 18 18 B/P (MAP) 124/64 (84) 113/66 (82) Pulse Ox 95 95 O2 Delivery Room Air Room Air Intake and Output 09/07/18 09/07/18 09/08/18 15:00 23:00 07:00 Intake Total 1080 ml Balance 1080 ml JUAN SERNA MD Sep 08, 2018 09:36
[2018-09-08] MEDS: oxyCODONE/APAP 5/325 1 TAB TABLET PO PRN (10:33)
[2018-09-08 11:00] VITALS: BP 119/66
--- NOTE | 2018-09-08 12:18 | PDOC ---
PROGRESS NOTES Chief Complaint Chief Complaint CC: abdominal pain, POD #2 from appendectomy History of Present Illness History of Present Illness Pt seen and examined this morning, up walking around the room this morning in street clothes, fiance at bedside Endorses flatus, tolerating diet States he is ready to go today Vitals Vitals Vital Signs Date Time Temp Pulse Resp B/P (MAP) Pulse Ox O2 Delivery O2 Flow Rate FiO2 09/08/18 11:38 Room Air 09/08/18 11:00 98.3 76 18 119/66 (83) 95 98.3 Physical Exam General: Alert, Oriented X3, Cooperative, No acute distress Heart: Regular rate, Normal S1, Normal S2, No murmurs Lungs: Clear, Other (No crackles or wheezing) Abdomen: Normal bowel sounds, Soft, No tenderness, No masses Extremities: No clubbing, No cyanosis, No edema, Normal pulses Skin: No rashes, No breakdown, No significant lesion Labs LABS Laboratory Tests Test 09/07/18 16:25 09/07/18 20:50 09/08/18 04:50 09/08/18 07:30 Glucose (Fingerstick) 122 mg/dL (70-99) 105 mg/dL (70-99) 215 mg/dL (70-99) White Blood Count 4.7 x10^3/uL (4.0-11.0) Red Blood Count 4.44 x10^6/uL (4.30-5.70) Hemoglobin 13.5 g/dL (13.0-17.5) Hematocrit 38.2 % (39.0-53.0) Mean Corpuscular Volume 86 fL (79-100) Mean Corpuscular Hemoglobin 30 pg (25-35) Mean Corpuscular Hemoglobin Concent 35 g/dL (31-37) Red Cell Distribution Width 12.3 % (11.5-14.5) Platelet Count 142 x10^3/uL (140-400) Neutrophils (%) (Auto) 52 % (31-73) Lymphocytes (%) (Auto) 37 % (24-48) Monocytes (%) (Auto) 9 % (0-9) Eosinophils (%) (Auto) 1 % (0-3) Basophils (%) (Auto) 1 % (0-3) Neutrophils # (Auto) 2.5 x10^3uL (1.8-7.7) Lymphocytes # (Auto) 1.7 x10^3/uL (1.0-4.8) Monocytes # (Auto) 0.4 x10^3/uL (0.0-1.1) Eosinophils # (Auto) 0.1 x10^3/uL (0.0-0.7) Basophils # (Auto) 0.0 x10^3/uL (0.0-0.2) Sodium Level 138 mmol/L (136-145) Potassium Level 3.7 mmol/L (3.5-5.1) Chloride Level 101 mmol/L (98-107) Carbon Dioxide Level 27 mmol/L (21-32) Anion Gap 10 (6-14) Blood Urea Nitrogen 16 mg/dL (8-26) Creatinine 1.0 mg/dL (0.7-1.3) Estimated GFR (Cockcroft-Gault) 93.4 Glucose Level 262 mg/dL (70-99) Calcium Level 8.9 mg/dL (8.5-10.1) Review of Systems Review of Systems Denies CP/SOA Denies N/V Denies changes in bowel habits Assessment and Plan Assessmemt and Plan Assessment: Appendicitis LEE DM1 Anxiety Plan: Pt desires d/c, given that Cr normalized with fluids plan to D/C Home today. F/u with Dr Valle in 1-2 weeks in office F/u with PCP in 1-2 weeks for routine lab testing Rx for pain written in chart Resume home medications Pt instructed to return with any signs or symptoms of infection Problems Medical Problems: (1) Acute appendicitis Status: Acute Comment Review of Relevant I have reviewed the following items merissa (where applicable) has been applied. Labs Laboratory Tests Test 09/06/18 15:08 09/06/18 20:34 09/07/18 05:10 09/07/18 07:26 Glucose (Fingerstick) 166 mg/dL (70-99) 316 mg/dL (70-99) 216 mg/dL (70-99) White Blood Count 7.5 x10^3/uL (4.0-11.0) Red Blood Count 4.64 x10^6/uL (4.30-5.70) Hemoglobin 13.9 g/dL (13.0-17.5) Hematocrit 40.3 % (39.0-53.0) Mean Corpuscular Volume 87 fL (79-100) Mean Corpuscular Hemoglobin 30 pg (25-35) Mean Corpuscular Hemoglobin Concent 35 g/dL (31-37) Red Cell Distribution Width 12.6 % (11.5-14.5) Platelet Count 154 x10^3/uL (140-400) Neutrophils (%) (Auto) 74 % (31-73) Lymphocytes (%) (Auto) 19 % (24-48) Monocytes (%) (Auto) 6 % (0-9) Eosinophils (%) (Auto) 0 % (0-3) Basophils (%) (Auto) 1 % (0-3) Neutrophils # (Auto) 5.5 x10^3uL (1.8-7.7) Lymphocytes # (Auto) 1.4 x10^3/uL (1.0-4.8) Monocytes # (Auto) 0.5 x10^3/uL (0.0-1.1) Eosinophils # (Auto) 0.0 x10^3/uL (0.0-0.7) Basophils # (Auto) 0.0 x10^3/uL (0.0-0.2) Sodium Level 139 mmol/L (136-145) Potassium Level 3.7 mmol/L (3.5-5.1) Chloride Level 101 mmol/L (98-107) Carbon Dioxide Level 28 mmol/L (21-32) Anion Gap 10 (6-14) Blood Urea Nitrogen 16 mg/dL (8-26) Creatinine 1.8 mg/dL (0.7-1.3) Estimated GFR (Cockcroft-Gault) 47.4 Glucose Level 234 mg/dL (70-99) Calcium Level 8.9 mg/dL (8.5-10.1) Test 09/07/18 11:34 09/07/18 16:25 09/07/18 20:50 09/08/18 04:50 Glucose (Fingerstick) 149 mg/dL (70-99) 122 mg/dL (70-99) 105 mg/dL (70-99) White Blood Count 4.7 x10^3/uL (4.0-11.0) Red Blood Count 4.44 x10^6/uL (4.30-5.70) Hemoglobin 13.5 g/dL (13.0-17.5) Hematocrit 38.2 % (39.0-53.0) Mean Corpuscular Volume 86 fL (79-100) Mean Corpuscular Hemoglobin 30 pg (25-35) Mean Corpuscular Hemoglobin Concent 35 g/dL (31-37) Red Cell Distribution Width 12.3 % (11.5-14.5) Platelet Count 142 x10^3/uL (140-400) Neutrophils (%) (Auto) 52 % (31-73) Lymphocytes (%) (Auto) 37 % (24-48) Monocytes (%) (Auto) 9 % (0-9) Eosinophils (%) (Auto) 1 % (0-3) Basophils (%) (Auto) 1 % (0-3) Neutrophils # (Auto) 2.5 x10^3uL (1.8-7.7) Lymphocytes # (Auto) 1.7 x10^3/uL (1.0-4.8) Monocytes # (Auto) 0.4 x10^3/uL (0.0-1.1) Eosinophils # (Auto) 0.1 x10^3/uL (0.0-0.7) Basophils # (Auto) 0.0 x10^3/uL (0.0-0.2) Sodium Level 138 mmol/L (136-145) Potassium Level 3.7 mmol/L (3.5-5.1) Chloride Level 101 mmol/L (98-107) Carbon Dioxide Level 27 mmol/L (21-32) Anion Gap 10 (6-14) Blood Urea Nitrogen 16 mg/dL (8-26) Creatinine 1.0 mg/dL (0.7-1.3) Estimated GFR (Cockcroft-Gault) 93.4 Glucose Level 262 mg/dL (70-99) Calcium Level 8.9 mg/dL (8.5-10.1) Test 09/08/18 07:30 Glucose (Fingerstick) 215 mg/dL (70-99) Laboratory Tests Test 09/07/18 16:25 09/07/18 20:50 09/08/18 04:50 09/08/18 07:30 Glucose (Fingerstick) 122 mg/dL (70-99) 105 mg/dL (70-99) 215 mg/dL (70-99) White Blood Count 4.7 x10^3/uL (4.0-11.0) Red Blood Count 4.44 x10^6/uL (4.30-5.70) Hemoglobin 13.5 g/dL (13.0-17.5) Hematocrit 38.2 % (39.0-53.0) Mean Corpuscular Volume 86 fL (79-100) Mean Corpuscular Hemoglobin 30 pg (25-35) Mean Corpuscular Hemoglobin Concent 35 g/dL (31-37) Red Cell Distribution Width 12.3 % (11.5-14.5) Platelet Count 142 x10^3/uL (140-400) Neutrophils (%) (Auto) 52 % (31-73) Lymphocytes (%) (Auto) 37 % (24-48) Monocytes (%) (Auto) 9 % (0-9) Eosinophils (%) (Auto) 1 % (0-3) Basophils (%) (Auto) 1 % (0-3) Neutrophils # (Auto) 2.5 x10^3uL (1.8-7.7) Lymphocytes # (Auto) 1.7 x10^3/uL (1.0-4.8) Monocytes # (Auto) 0.4 x10^3/uL (0.0-1.1) Eosinophils # (Auto) 0.1 x10^3/uL (0.0-0.7) Basophils # (Auto) 0.0 x10^3/uL (0.0-0.2) Sodium Level 138 mmol/L (136-145) Potassium Level 3.7 mmol/L (3.5-5.1) Chloride Level 101 mmol/L (98-107) Carbon Dioxide Level 27 mmol/L (21-32) Anion Gap 10 (6-14) Blood Urea Nitrogen 16 mg/dL (8-26) Creatinine 1.0 mg/dL (0.7-1.3) Estimated GFR (Cockcroft-Gault) 93.4 Glucose Level 262 mg/dL (70-99) Calcium Level 8.9 mg/dL (8.5-10.1) Medications Current Medications Ondansetron HCl (Zofran Odt) 4 mg 1X ONCE PO ; Start 09/05/18 at 23:00; Stop at 23:01; Status DC Ondansetron HCl (Zofran) 4 mg STK-MED ONCE .ROUTE ; Start 09/05/18 at 22:20; Stop 09/05/18 at 22:21; Status DC Sodium Chloride 1,000 ml @ 1,000 mls/hr 1X ONCE IV Last administered on at 22:32; Start 09/05/18 at 22:30; Stop 09/05/18 at 23:29; Status DC Ketorolac Tromethamine (Toradol 15mg Vial) 15 mg 1X ONCE IV Last administered on 09/05/18at 22:30; Start 09/05/18 at 22:30; Stop 09/05/18 at 22:53; Status DC Famotidine (Pepcid Vial) 20 mg 1X ONCE IVP Last administered on 09/05/18at 23: 01; Start 09/05/18 at 23:00; Stop 09/05/18 at 23:01; Status DC Metoclopramide HCl (Reglan Vial) 10 mg 1X ONCE IV Last administered on at 22:59; Start 09/05/18 at 23:00; Stop 09/05/18 at 23:01; Status DC Ondansetron HCl (Zofran) 4 mg PRN Q8HRS PRN IV NAUSEA/VOMITING; Start 09/06/18 at 00:00; Stop 09/06/18 at 23:59; Status DC Fentanyl Citrate (Fentanyl 2ml Vial) 50 mcg PRN Q2HR PRN IV PAIN Last administered on 09/07/18at 16:11; Start 09/06/18 at 00:00 Insulin Human Lispro (HumaLOG) 0-5 UNITS TIDWMEALS SQ ; Start 09/06/18 at 08:00 Dextrose (Dextrose 50%-Water Syringe) 12.5 gm PRN Q15MIN PRN IV SEE COMMENTS; Start 09/06/18 at 00:00 Piperacillin Sod/ Tazobactam Sod 3.375 gm/Sodium Chloride 50 ml @ 100 mls/hr 1X ONCE IV Last administered on 09/06/18at 00:32; Start 09/06/18 at 00:15; Stop 09/06/18 at 00:44; Status DC Sodium Chloride 1,000 ml @ 125 mls/hr 1X ONCE IV Last administered on at 00:33; Start 09/06/18 at 00:15; Stop 09/06/18 at 08:14; Status DC Ondansetron HCl (Zofran) 4 mg PRN Q6HRS PRN IV NAUSEA/VOMITING; Start 09/06/18 at 08:45; Stop 09/07/18 at 08:44; Status DC Fentanyl Citrate (Fentanyl 2ml Vial) 25 mcg PRN Q5MIN PRN IV MILD PAIN; Start 09/06/18 at 08:45; Stop 09/07/18 at 08:44; Status DC Fentanyl Citrate (Fentanyl 2ml Vial) 50 mcg PRN Q5MIN PRN IV MODERATE TO SEVERE PAIN Last administered on 09/06/18at 15:25; Start 09/06/18 at 08:45; Stop 09/07/18 at 08:44; Status DC Morphine Sulfate (Morphine Sulfate) 1 mg PRN Q10MIN PRN IV SEVERE PAIN; Start 09/06/18 at 08:45; Stop 09/07/18 at 08:44; Status DC Ringer's Solution 1,000 ml @ 30 mls/hr Q24H IV ; Start 09/06/18 at 08:42; Stop 09/06/18 at 20:41; Status DC Lidocaine HCl (Xylocaine-Mpf 1% 2ml Vial) 2 ml 1X PRN PRN ID IV START; Start at 08:45; Stop 09/07/18 at 08:44; Status DC Hydromorphone HCl (Dilaudid) 0.5 mg PRN Q10MIN PRN IV SEV PAIN, Second choice; Start 09/06/18 at 08:45; Stop 09/07/18 at 08:44; Status DC Prochlorperazine Edisylate (Compazine) 5 mg PACU PRN PRN IV NAUSEA, MRX1 Last administered on 09/06/18at 14:31; Start 09/06/18 at 08:45; Stop 09/07/18 at 08:44 ; Status DC Morphine Sulfate (Morphine Sulfate) 2 mg PRN Q2HR PRN IV MODERATE PAIN Last administered on 09/07/18at 08:57; Start 09/06/18 at 11:30 Propofol 20 ml @ As Directed STK-MED ONCE IV ; Start 09/06/18 at 12:51; Stop at 12:52; Status DC Dexamethasone Sodium Phosphate (Decadron) 20 mg STK-MED ONCE .ROUTE ; Start at 12:51; Stop 09/06/18 at 12:52; Status DC Ondansetron HCl (Zofran) 4 mg STK-MED ONCE .ROUTE ; Start 09/06/18 at 12:51; Stop 09/06/18 at 12:52; Status DC Lidocaine HCl (Lidocaine Pf 2% Vial) 5 ml STK-MED ONCE .ROUTE ; Start 09/06/18 at 12:51; Stop 09/06/18 at 12:52; Status DC Famotidine (Pepcid Vial) 20 mg STK-MED ONCE .ROUTE ; Start 09/06/18 at 12:51; Stop 09/06/18 at 12:52; Status DC Midazolam HCl (Versed) 2 mg STK-MED ONCE .ROUTE ; Start 09/06/18 at 12:52; Stop 09/06/18 at 12:53; Status DC Fentanyl Citrate (Fentanyl 2ml Vial) 100 mcg STK-MED ONCE .ROUTE ; Start at 12:52; Stop 09/06/18 at 12:53; Status DC Rocuronium [place] (Zemuron) 50 mg STK-MED ONCE .ROUTE ; Start 09/06/18 at 12:52 ; Stop 09/06/18 at 12:53; Status DC Bupivacaine HCl/ Epinephrine Bitart (Sensorcain-Mpf Epi 0.5%-1:[id number]) 30 ml STK -MED ONCE .ROUTE Last administered on 09/06/18at 13:36; Start 09/06/18 at 11:54 ; Stop 09/06/18 at 12:54; Status DC Cefazolin Sodium (Ancef) 1 gm STK-MED ONCE .ROUTE ; Start 09/06/18 at 13:29; Stop 09/06/18 at 13:30; Status DC Cefazolin Sodium (Ancef) 1 gm STK-MED ONCE .ROUTE ; Start 09/06/18 at 13:29; Stop 09/06/18 at 13:30; Status DC Sodium Chloride (SODIUM CHLORIDE 20ml) 20 ml STK-MED ONCE IJ ; Start 09/06/18 at 13:29; Stop 09/06/18 at 13:30; Status DC Glycopyrrolate (Robinul) 1 mg STK-MED ONCE .ROUTE ; Start 09/06/18 at 13:54; Stop 09/06/18 at 13:55; Status DC Neostigmine Methylsulfate (Neostigmine Methylsulfate) 5 mg STK-MED ONCE .ROUTE ; Start 09/06/18 at 13:54; Stop 09/06/18 at 13:55; Status DC Desflurane (Suprane) 30 ml STK-MED ONCE IH ; Start 09/06/18 at 14:00; Stop 09/06 at 14:01; Status DC Cefoxitin Sodium (Mefoxin) 1 gm Q8H IVP Last administered on 09/07/18at 12:58; Start 09/06/18 at 21:00; Stop 09/07/18 at 13:01; Status DC Sodium Chloride (Normal Saline Flush) 3 ml QSHIFT PRN IV AFTER MEDS AND BLOOD DRAWS; Start 09/06/18 at 14:15 Morphine Sulfate (Morphine Sulfate) 2 mg PRN Q3HRS PRN IV PAIN; Start 09/06/18 at 14:15 Oxycodone/ Acetaminophen (Percocet 5/325) 1 tab PRN Q4HRS PRN PO MILD PAIN, 1ST CHOICE Last administered on 09/06/18at 19:57; Start 09/06/18 at 14:15 Oxycodone/ Acetaminophen (Percocet 5/325) 2 tab PRN Q4HRS PRN PO MODERATE PAIN , SEVERE PAIN Last administered on 09/08/18at 10:33; Start 09/06/18 at 14:15 Ketorolac Tromethamine (Toradol 15mg Vial) 15 mg Q6HRS IV Last administered on 09/08/18at 06:00; Start 09/06/18 at 18:00; Stop 09/08/18 at 17:59 Ondansetron HCl (Zofran) 4 mg PRN Q6HRS PRN IV NAUSEA, 1ST CHOICE; Start at 14:15 Dextrose/Lactated Ringer's 1,000 ml @ 75 mls/hr [id number] IV ; Start 09/06/18 at 14:07; Stop 09/07/18 at 03:33; Status DC Fentanyl Citrate (Fentanyl 2ml Vial) 100 mcg STK-MED ONCE .ROUTE ; Start at 14:27; Stop 09/06/18 at 14:28; Status DC Prochlorperazine Edisylate (Compazine) 10 mg STK-MED ONCE .ROUTE ; Start at 14:27; Stop 09/06/18 at 14:28; Status DC Calcium Carbonate/ Glycine (Tums) 500 mg PRN AFTMEALHC PRN PO INDIGESTION Last administered on 09/07/18at 23:41; Start 09/07/18 at 06:45 Sodium Chloride 1,000 ml @ 75 mls/hr [id number] IV Last administered on at 01:00; Start 09/07/18 at 11:45 Active Scripts Active Reported Levemir (Insulin Detemir) 100 Unit/1 Ml Vial 30 Unit SQ HS Humalog (Insulin Lispro) 100 Unit/1 Ml Insuln.pen 0 SQ TIDWMEALS Paxil (Paroxetine Hcl) 20 Mg Tablet 1 Tab PO DAILY Vitals/I & O Vital Sign - Last 24 Hours 09/07/18 09/07/18 09/07/18 09/07/18 12:58 15:00 16:11 17:09 Temp 98.2 98.2 Pulse 78 Resp 18 B/P (MAP) 115/57 (76) Pulse Ox 96 O2 Delivery Room Air Room Air Room Air Room Air 09/07/18 09/07/18 09/07/18 09/07/18 19:00 20:00 20:42 21:42 Temp 98.4 98.4 Pulse 79 Resp 18 18 18 B/P (MAP) 107/65 (79) Pulse Ox 97 O2 Delivery Room Air Room Air Room Air 09/07/18 09/08/18 09/08/18 09/08/18 23:00 03:00 07:02 10:33 Temp 98.4 98.0 98.1 98.4 98.0 98.1 Pulse 85 73 88 Resp 18 18 18 B/P (MAP) 114/72 (86) 124/64 (84) 113/66 (82) Pulse Ox 95 95 95 O2 Delivery Room Air Room Air Room Air Room Air 09/08/18 09/08/18 11:00 11:38 Temp 98.3 98.3 Pulse 76 Resp 18 B/P (MAP) 119/66 (83) Pulse Ox 95 O2 Delivery Room Air Room Air Intake and Output 09/07/18 09/07/18 09/08/18 15:00 23:00 07:00 Intake Total 1080 ml Balance 1080 ml CHEPE BARNES III DO Sep 08, 2018 12:18
--- NOTE | 2018-09-08 13:06 | NUR ---
Pt was given dc packet, rx for Percocet, and is to f/u with Dr. Valle in one to two weeks. Dressing supplies given for dressing change. Education provided for dressing change and procedure that was preformed.
[2018-09-08 15:00] VITALS: BP 102/40
--- NOTE | 2018-09-08 19:18 | DS ---
DATE OF DISCHARGE: 09/08/2018 ADMISSION DIAGNOSIS: Appendicitis. DISCHARGE DIAGNOSIS: Postop day #2 laparoscopic appendectomy. HOSPITAL COURSE: The patient is a pleasant middle-aged male who presented with appendicitis. He was admitted. We consulted General Surgery. He was taken for laparoscopic appendectomy. Post surgery he did well, but his creatinine bumped from 0.8 to 1.8. We gave him IV fluids and this morning his creatinine is back down to normal. I saw him and examined him. His heart tones were normal. His lungs were clear. We plan to discharge with close outpatient followup. DISPOSITION: Home. ACTIVITY: As tolerated. DIET: Low sodium. MEDICATIONS: Please see the MRAD. I just resumed his home meds and we gave him a prescription for some p.r.n. Lortab. TOTAL TIME: 32 minutes. CHEPE BARNES DO DR: [email or web address] JOB#: [id number] / [id number]
--- NOTE | 2018-09-10 18:05 | PATHOLOGY ---
[facility] Accession Number: [id number] . 01 Material submitted: . appendix - APPENDIX . 01 Clinical history: . Appendicitis . 02 Diagnosis: Appendix, appendectomy: - Acute appendicitis. (JP:sage; 09/10/2018) MBR/09/10/2018 . 02 Comment: There is no evidence of rupture. (JPM:sage; 09/10/2018) . 02 Electronically signed: . Rafita Serrano MD, Pathologist NPI- [id number] . 01 Gross description: . The specimen is received in formalin, labeled "Layla, Tatianna, appendix", is an appendix measuring 12 cm in length and up to 1.0 cm in diameter with abundantly attached mesoappendix measuring 5.2 x 3.4 x 1.0 cm. The proximal appendiceal margin is closed by a linear staple line measuring 1.5 cm in length with an average 0.2 cm width. The staple line and the adjacent serosa is inked black. The serosa is oconnell-pink with congested vasculature in the mid to distal. The lumen is dilated and filled with oconnell, purulent material and no discrete fecalith. The wall has an average thickness of 0.2 cm. No discrete masses are identified. Relationship Management Lead tissue is submitted in A1. . ([facility]; 09/09/2018) SHS/SHS . 02 Pathologist provided ICD-10: K35.80 . 02 CPT . 171314 Specimen Comment: A courtesy copy of this report has been sent to Specimen Comment: [phone], , , . Specimen Comment: Report sent to ,DR BROWN.DR JOSEPH / DR SANCHEZ Performed at: 01 [facility] [id number] [facility] [address], [place], [place] [id number] MD Faisal Flores MD Phone: [phone] Performed at: [facility] [address] [place], [place] [id number] MD Rafita Serrano MD Phone: [phone]
== END 2018-09-08 12:30 | disposition home or self-care (01) | DRG 342 ==
LOC: ER 21:57 → 4 NORTH 23:53
PROVIDERS: ADMIT Internal Medicine; ATTEND Internal Medicine
PROC: 0DTJ4ZZ Resection of Appendix, Percutaneous Endoscopic Approach (ICD-10-PCS; principal; 2018-09-06 13:00)
DX: K35.80 Unspecified acute appendicitis (principal); N17.9 Acute kidney failure, unspecified; E10.9 Type 1 diabetes mellitus without complications; F41.9 Anxiety disorder, unspecified; F32.9 Major depressive disorder, single episode, unspecified; Z79.4 Long term (current) use of insulin; Z79.899 Other long term (current) drug therapy; Z82.49 Family history of ischemic heart disease and other diseases of the circulatory system
CPT/HCPCS: 36415; 74176; 80048; 80053; 81001; 82962; 83690; 83735; 85025; 88304; 96374; 96375; 99291; A7015; J0690; J0694; J0780; J1100; J1815; J1885; J2001; J2250; J2270; J2405; J2543; J2704; J2710; J2765; J3010; J3490; J7030; J7120